=== PATIENT | male | born 1930 | race Caucasian/White ===

== ENCOUNTER 2016-05-30 15:02 | Inpatient (IN) | payer MEDICARE, OTHER ==
[2016-05-30 15:36] LABS: ABSOLUTE BASOPHILS # (AUTO) 0.1 10^3/uL (0.0-0.2); ABSOLUTE EOSINOPHILS # (AUTO) 0.1 10^3/uL (0.0-0.6); ABSOLUTE LYMPHOCYTES (AUTO) 0.8 10^3/uL (0.5-4.7); ABSOLUTE MONOCYTES (AUTO) 1.2 10^3/uL (0.1-1.4); ABSOLUTE NEUT (AUTO) 8.9 10^3/uL (1.7-8.2); BASOPHILS % (AUTO) 0.5 % (0-2); EOSINOPHILS % (AUTO) 1.2 % (0-6); HEMATOCRIT 34.4 % (37.9-51.0); HEMOGLOBIN 11.5 g/dL (13.5-17.0); HGB HCT DIFFERENCE 0.1; LYMPHOCYTES % (AUTO) 7.3 % (13-45); MEAN CORPUSCULAR HEMOGLOBIN 31.7 pg (27.0-33.4); MEAN CORPUSCULAR HGB CONC 33.4 g/dL (32.0-36.0); MEAN CORPUSCULAR VOLUME 95 fl (80-97); MONOCYTES % (AUTO) 10.9 % (3-13); RED BLOOD COUNT 3.63 10^6/uL (4.35-5.55); RED CELL DISTRIBUTION WIDTH 14.7 % (11.5-14.0); SEGMENTED NEUTROPHILS % (AUTO) 80.1 % (42-78); WHITE BLOOD COUNT 11.1 10^3/uL (4.0-10.5)
[2016-05-30 15:42] LABS: PROTHROMBIN TIME 14.2 SEC (11.4-15.4)
[2016-05-30 15:58] LABS: ALANINE AMINOTRANSFERASE 58 U/L (21-72); ALBUMIN 3.9 g/dL (3.5-5.0); ALKALINE PHOSPHATASE 78 U/L (38-126); ANION GAP 12 (5-19); ASPARTATE AMINO TRANSFERASE 44 U/L (17-59); BILIRUBIN,TOTAL 1.1 mg/dL (0.2-1.3); BLOOD UREA NITROGEN 26 mg/dL (7-20); CALCIUM 8.8 mg/dL (8.4-10.2); CARBON DIOXIDE 22 mmol/L (22-30); CHLORIDE 105 mmol/L (98-107); CREATINE KINASE 98 U/L (55-170); CREATININE RESULT 1.06 mg/dL (0.52-1.25); GLUCOSE 110 mg/dL (75-110); LIPASE 113.2 U/L (23-300); MAGNESIUM 1.9 mg/dL (1.6-2.3); POTASSIUM 4.6 mmol/L (3.6-5.0); TOTAL PROTEIN 7.2 g/dL (6.3-8.2)
--- NOTE | 2016-05-30 16:01 | ER Document Report ---
ED General - General Chief Complaint: Syncope Stated Complaint: POSSIBLE SYNCOPE TRAVEL OUTSIDE OF THE [place] IN LAST 30 DAYS: No - HPI Patient complains to provider of: syncope Notes: Patient coming in from home after syncopal episode. According to EMS they were called to the patient's house twice a day for fall. Patient recently discharged from rehabilitation facility has been home for 2 days. Patient did recently established stroke and was evaluated here in the hospital. Patient otherwise states no head pain chest pain abdominal pain shortness of breath any other symptoms prior to during or after this episode. According EMS the patient 's home health nurse did witness the episode patient "locked up" and was later on the floor and was out for approximately 2 minutes. Never lost pulses. Patient did have bowel incontinence during this time. 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 GI Medical History: Reports: Hx Irritable Bowel Past Surgical History: Reports: Hx Herniorrhaphy, Hx Inguinal Hernia - Immunizations Immunizations up to date: Yes Hx Diphtheria, Pertussis, Tetanus Vaccination: Yes Review of Systems - Review of Systems Constitutional: No symptoms reported EENT: No symptoms reported Cardiovascular: Syncope Respiratory: No symptoms reported Gastrointestinal: No symptoms reported Genitourinary: No symptoms reported Male Genitourinary: No symptoms reported Musculoskeletal: No symptoms reported Skin: No symptoms reported Hematologic/Lymphatic: No symptoms reported Neurological/Psychological: No symptoms reported -: Yes All other systems reviewed and negative Physical Exam - Vital signs Vitals: Resp Pulse Ox 22 H 83 L 05/30/16 15:21 05/30/16 15:21 Interpretation: Normal - General General appearance: Appears well, Alert - HEENT Head: Normocephalic, Atraumatic Eyes: Normal Pupils: PERRL - Respiratory Respiratory status: No respiratory distress Chest status: Nontender Breath sounds: Normal Chest palpation: Normal - Cardiovascular Rhythm: Regular Heart sounds: Normal auscultation Murmur: No - Abdominal Inspection: Normal Distension: No distension Bowel sounds: Normal Tenderness: Nontender Organomegaly: No organomegaly - Back Back: Normal, Nontender - Extremities General upper extremity: Nontender, Normal color, Normal ROM, Normal temperature General lower extremity: Nontender, Normal color, Normal ROM, Normal temperature , Normal weight bearing. No: Rufus's sign Notes: Patient with contracture of the left upper extremity and a splint on the left lower extremity. Patient has a history of stroke and weakness from the strokes. Decreased movement due to stroke normal per patient - Neurological Neuro grossly intact: Yes Cognition: Normal Orientation: AAOx4 Jessica Coma Scale Eye Opening: Spontaneous York Coma Scale Verbal: Oriented York Coma Scale Motor: Obeys Commands York Coma Scale Total: 15 Speech: Normal Motor strength normal: LUE, RUE, LLE, RLE Sensory: Normal - Psychological Associated symptoms: Normal affect, Normal mood - Skin Skin Temperature: Warm Skin Moisture: Dry Skin Color: Normal Course - Re-evaluation Re-evalutation: 05/30/16 22:30 Patient coming in for possible syncopal episode/seizure. Lab work and workup here is otherwise negative. Concern patient will be admitted for further evaluation - Vital Signs Vital signs: Temp Pulse Resp BP Pulse Ox 97.9 F 73 23 H 126/76 H 94 05/30/16 21:45 05/30/16 21:45 05/30/16 22:00 05/30/16 21:45 05/30/16 22:00 - Laboratory Result Diagrams: 05/30/16 15:23 05/30/16 15:23 Laboratory results interpreted by me: 05/30/16 05/30/16 15:23 15:23 WBC 11.1 H RBC 3.63 L Hgb 11.5 L Hct 34.4 L RDW 14.7 H Seg Neutrophils % 80.1 H Lymphocytes % 7.3 L Absolute Neutrophils 8.9 H BUN 26 H Discharge - Discharge Clinical Impression: History of stroke Syncope Qualifiers: Syncope type: unspecified Qualified Code(s): R55 - Syncope and collapse Condition: Good Disposition: ADMITTED INPATIENT Admitting Provider: Hospitalist - [facility] Admitted: Telemetry
[2016-05-30 16:11] LABS: CREATINE KINASE MB 2.06 ng/mL (<4.55)
[2016-05-30 16:14] LABS: TROPONIN I < 0.012 ng/mL
[2016-05-30] MEDS ORDERED: NORMAL SALINE 1000 ML 500 ML IV ONE (16:47)
[2016-05-30] MEDS ORDERED: ACETAMINOPHEN 325 MG TABLET PO PRN (17:46)
[2016-05-30] MEDS ORDERED: HYDROXYZINE PAMOATE 25 MG CAPSULE PO PRN (17:46)
[2016-05-30] MEDS ORDERED: NORMAL SALINE 1000 ML 1,000 ML IV PRN (17:47)
[2016-05-30] MEDS ORDERED: ONDANSETRON 4 MG TAB.RAPDIS PO PRN (17:47)
[2016-05-30] MEDS ORDERED: PHARMACY COMMUNICATION ORDER MC NR (18:00)
[2016-05-30] MEDS ORDERED: MESALAMINE PO SCH (18:00)
--- NOTE | 2016-05-30 18:07 | PDOC H&P ---
History of Present Illness Admission Date/PCP: 05/30/2016 History of Present Illness: NAIDA OWENS JR is a 85 year old male with a history of previous CVA in 2000 who was recently discharged from a rehabilitation facility 2 days ago. According to EMS, they have been out there at least twice a day for falls. This last time patient apparently had a syncopal episode where he went stiff and had bowel incontinence. During this last episode, patient apparently was unconscious for 2 minutes but never lost pulses. He never stopped breathing. EMS reports that he was not postictal afterwards. 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 At this time, it is difficult to obtain history from patient proper and there is no family at bedside. He does report that every other time except this last time he didn't lose consciousness. He reports that he oftentimes has difficulty with his bowels secondary to having underlying colitis. He reports he didn't take any medications today. Patient describes no other symptoms at this time. Patient denies any chest pain, shortness of breath, dyspnea on exertion, lower extremity edema, nausea, vomiting, difficulty with speech, new onset weakness or numbness. He is referred to hospital service for evaluation of syncope. Current medications the bottom of this document have now been verified at the time of this documentation. We are pending medication reconciliation. Past Medical History Past Medical History: Hyperlipidemia, previous CVA, history of alcoholism, colitis Cardiac Medical History: Reports: Hyperlipidema, Hypertension Neurological Medical History: Reports: Ischemic CVA Hematology: Reports: Anemia Past Surgical History Past Surgical History: Reports: Herniorrhaphy, Tonsillectomy Social History Smoking Status: Former Smoker Last Time Smoked: 1957 Frequency of Alcohol Use: None Amount of Alcoholic Beverages Per Day: previous history of heavy alcohol use up until 2000 Hx Recreational Drug Use: No Drugs: None Hx Prescription Drug Abuse: No - Advance Directive Resuscitation Status: Full Code Surrogate healthcare decision maker:: Daughter, Jose singleton Family History Family History: CAD, Hypertension, Other - Father had CHF Parental Family History Reviewed: Yes - mother in childbirth Children Family History Reviewed: Yes Sibling(s) Family History Reviewed.: Yes Medication/Allergy Home Medications: Aspirin [Aspirin EC] 81 mg PO DAILY 11/04/13 Simvastatin 10 mg PO DAILY 11/04/13 Acidoph/L.bulg/Bif.b/S.thermop [Bacid Caplet] 1 tab PO BID #28 cap 11/11/13 Albuterol Sulfate [Proair HFA] 1 puff DAILY PRN 04/12/16 Mesalamine [Delzicol] 2 tab PO TID 04/12/16 Tramadol HCl 1 tab PO QID 04/12/16 Umeclidinium Brm/Vilanterol Tr [Anoro Ellipta 62.5-25 Mcg INH] 1 puff .ROUTE DAILY 04/12/16 Diclofenac Sodium [Voltaren] 100 gm TP QID PRN 04/13/16 Ferrous Sulfate [Iron] 325 mg PO DAILY 04/13/16 Fish Oil/Dha/Epa [Fish Oil 1,200 mg Fish Oil] 1,200 mg PO DAILY 04/13/16 Folic Acid/Multivit-Min/Lutein [Centrum Silver Chewable Tablet] 1 each PO DAILY 04/13/16 Acetaminophen [Tylenol 325 mg Tablet] 650 mg PO Q4HP PRN tablet 04/16/16 Albuterol Sulfate [Proair Hfa Inhalation Aerosol 8.5 gm Mdi] 1 puff IH Q4 PRN # 1 mdi 04/16/16 Enoxaparin Sodium [Lovenox Inj 40 mg/0.4 ml Disp.syrin] 40 mg SUBCUT QAM disp.syrin 04/16/16 Hydroxyzine Pamoate [Vistaril 25 mg Capsule] 25 mg PO HSP PRN capsule 04/16/16 Allergies/Adverse Reactions: temazepam [From Restoril] Adverse Reaction (Mild, Verified 04/15/16 15:30) Confusion Review of Systems Constitutional: ABSENT: chills, fever(s), headache(s), night sweats, weakness, weight gain, weight loss Eyes: ABSENT: visual disturbances Ears: ABSENT: hearing changes Nose, Mouth, and Throat: ABSENT: headache(s), vertigo Cardiovascular: ABSENT: chest pain, dyspnea on exertion, edema, orthropnea, palpitations Respiratory: ABSENT: cough, hemoptysis Gastrointestinal: ABSENT: abdominal pain, constipation, diarrhea, hematemesis, hematochezia, nausea, vomiting Genitourinary: ABSENT: dysuria, hematuria Musculoskeletal: ABSENT: joint swelling Integumentary: ABSENT: rash, wounds Neurological: PRESENT: as per HPI, frequent falls, syncope. ABSENT: abnormal gait, abnormal speech, confusion, dizziness, numbness, paresthesias, restless legs, vertigo, weakness Psychiatric: ABSENT: anxiety, depression, homidical ideation, suicidal ideation Endocrine: ABSENT: cold intolerance, heat intolerance, polydipsia, polyuria Hematologic/Lymphatic: ABSENT: easy bleeding, easy bruising Physical Exam Vital Signs: Temp Pulse Resp BP Pulse Ox 80 22 H 139/59 H 94 05/30/16 16:57 05/30/16 15:27 05/30/16 16:57 05/30/16 15:28 General appearance: PRESENT: no acute distress, hard of hearing, well-developed , well-nourished Head exam: PRESENT: atraumatic, normocephalic Eye exam: PRESENT: conjunctiva pink, EOMI, PERRLA. ABSENT: conjunctival injection, scleral icterus Ear exam: PRESENT: normal external ear exam Mouth exam: PRESENT: moist, tongue midline Neck exam: ABSENT: JVD, lymphadenopathy, tenderness, thyromegaly, tracheal deviation Respiratory exam: PRESENT: clear to auscultation guido, prolonged expiratory phas , symmetrical. ABSENT: crackles, rales, rhonchi, tachypnea, wheezes Cardiovascular exam: PRESENT: RRR, +S1, +S2. ABSENT: clicks, diastolic murmur, gallop, rubs, systolic murmur, tachycardia Pulses: PRESENT: normal carotid pulses, normal radial pulses Vascular exam: PRESENT: normal capillary refill GI/Abdominal exam: PRESENT: hypoactive bowel sounds, normal bowel sounds, soft. ABSENT: distended, firm, guarding, mass, Bullock's sign, organolmegaly, rebound , rigid, tenderness Rectal exam: PRESENT: deferred Extremities exam: ABSENT: clubbing, pedal edema Musculoskeletal exam: PRESENT: deformity - Left lower extremity contracture, left upper extremity contracture Neurological exam: PRESENT: alert, awake, oriented to person, oriented to place , oriented to situation, CN II-XII grossly intact, motor sensory deficit - Left hemiparesis. ABSENT: oriented to time - Not oriented to time, normal gait - Left foot drop Psychiatric exam: PRESENT: appropriate affect, normal mood. ABSENT: homicidal ideation, suicidal ideation Skin exam: PRESENT: dry, intact, skin tears - Gen. bilateral arms, warm. ABSENT : cyanosis, rash Results Laboratory Results: 05/30/16 15:23 12/21/16 15:23 05/30/16 05/30/16 15:23 15:23 WBC 11.1 H RBC 3.63 L Hgb 11.5 L Hct 34.4 L MCV 95 MCH 31.7 MCHC 33.4 RDW 14.7 H Plt Count 260 Seg Neutrophils % 80.1 H Lymphocytes % 7.3 L Monocytes % 10.9 Eosinophils % 1.2 Basophils % 0.5 Absolute Neutrophils 8.9 H Absolute Lymphocytes 0.8 Absolute Monocytes 1.2 Absolute Eosinophils 0.1 Absolute Basophils 0.1 Sodium 139.0 Potassium 4.6 Chloride 105 Carbon Dioxide 22 Anion Gap 12 BUN 26 H Creatinine 1.06 Est GFR ( Amer) > 60 Est GFR (Non-Af Amer) > 60 Glucose 110 Calcium 8.8 Magnesium 1.9 Total Bilirubin 1.1 AST 44 ALT 58 Alkaline Phosphatase 78 Total Protein 7.2 Albumin 3.9 Lipase 113.2 05/30/16 05/30/16 15:23 15:23 Creatine Kinase 98 CK-MB (CK-2) 2.06 Troponin I < 0.012 Impressions: Chest X-Ray 05/30/16 15:27 IMPRESSION: NO ACUTE RADIOGRAPHIC FINDING IN THE CHEST. Head CT 05/30/16 15:27 IMPRESSION: CHRONIC CHANGES OF ATROPHY AND MICROVASCULAR ISCHEMIA. NO ACUTE PROCESS. Assessment & Plan - Diagnosis (1) Syncope Qualifiers: Syncope type: unspecified Qualified Code(s): R55 - Syncope and collapse Is this a current diagnosis for this admission?: YesPlan: Patient with witnessed episode of syncope by his home health nurse. Patient was also noted to be stiff. Will obtain EEG, VQ scan, and continue patient on MEND examinations every 4 hours. Have concern that patient actually had a seizure. Will give Keppra if he does have a seizure. Patient's other episodes were falls at least according to patient. We will consult physical therapy and occupational therapy for evaluation area and will obtain a drug screen. And I will send alcohol level. I suspect an underlying infection possibly a UTI due to patient's leukocytosis however given that I have no UA at this time I'm reluctant to start patient on antibiotic. Anabiotic usage will worsen his diarrhea. (2) Ambulatory dysfunction Is this a current diagnosis for this admission?: YesPlan: Consult physical therapy and occupational therapy (3) Anemia Qualifiers: Anemia type: B12 deficiency Vitamin B12 deficiency anemia type: unspecified B12 deficiency Qualified Code(s): D51.9 - Vitamin B12 deficiency anemia, unspecified Is this a current diagnosis for this admission?: YesPlan: Continue vitamin B-12 (4) Benign essential hypertension Is this a current diagnosis for this admission?: YesPlan: Will resume patient's home medications once reconciled (5) Hypercholesterolemia Is this a current diagnosis for this admission?: YesPlan: Continue statin (6) Inflammatory bowel disease Is this a current diagnosis for this admission?: YesPlan: Will check stool for white cells, occult blood, and culture. Continue Bacid. Continue mesalamine (7) Mild memory disturbance Is this a current diagnosis for this admission?: Yes (8) CVA (cerebral vascular accident) Qualifiers: CVA mechanism: unspecified Qualified Code(s): I63.9 - Cerebral infarction, unspecified Is this a current diagnosis for this admission?: NoPlan: Patient has previous CVA with residual left-sided hemiparesis. Concern for possible seizure in light of this history. Will obtain EEG in place on precautions. Continue aspirin. - Time Time Spent: 50 to 70 Minutes Medications reviewed and adjusted accordingly: Yes Anticipated discharge: Home with Homehealth Within: within 72 hours - Inpatient Certification Based on my medical assessment, after consideration of the patient's comorbidities, presenting symptoms, or acuity I expect that the services needed warrant INPATIENT care.: Yes I certify that my determination is in accordance with my understanding of Medicare's requirements for reasonable and necessary INPATIENT services [42 CFR 412.3e].: Yes Medical Necessity: Significant Comorbidiites Make Outpatient Treatment Too Risky , Need For IV Fluids, Need For Continuous Telemetry Monitoring, Need for Neurological Checks Post Hospital Care: D/C Pan Devulcanizer Documentation
[2016-05-30 18:28] LABS: APPEARANCE,URINE SLIGHTLY-CLOUDY; BILIRUBIN,URINE NEGATIVE (NEGATIVE); GLUCOSE, URINE NEGATIVE (NEGATIVE); KETONES,URINE TRACE mg/dL (NEGATIVE); LEUKOCYTE ESTERASE,URINE NEGATIVE (NEGATIVE); NITRITE,URINE NEGATIVE (NEGATIVE); PROTEIN,URINE 30 mg/dL (NEGATIVE); URINE SPECIFIC GRAVITY 1.021
[2016-05-30 18:42] LABS: URINE BARBITURATES SCREEN NEGATIVE; URINE METHADONE SCREEN NEGATIVE; URINE PHENCYCLIDINE SCREEN NEGATIVE
--- NOTE | 2016-05-30 19:06 | EKG REPORT ---
SEVERITY:- BORDERLINE ECG - SINUS RHYTHM WITH FIRST DEGREE AVB. DIFFUSE NONSPECIFIC ST-T CHANGES. : Confirmed by: Brett Hardin MD 30-May-2016 19:05:50
[2016-05-30] MEDS ORDERED: ENOXAPARIN SODIUM INJ 40 MG/0.4 ML DISP.SYRIN SUBCUT ONE (21:00)
[2016-05-30 22:00] LABS: CREATINE KINASE MB 1.53 ng/mL (<4.55); TROPONIN I 0.013 ng/mL
[2016-05-31] MEDS: MESALAMINE 400 MG CAPSULE.DR PO SCH ×4 (01:31→22:30)
[2016-05-31 03:26] LABS: ABSOLUTE EOSINOPHILS # (AUTO) 0.3 10^3/uL (0.0-0.6); ABSOLUTE LYMPHOCYTES (AUTO) 1.4 10^3/uL (0.5-4.7); ABSOLUTE NEUT (AUTO) 5.5 10^3/uL (1.7-8.2); BASOPHILS % (AUTO) 0.5 % (0-2); HEMATOCRIT 31.7 % (37.9-51.0); HEMOGLOBIN 10.8 g/dL (13.5-17.0); HGB HCT DIFFERENCE 0.7; LYMPHOCYTES % (AUTO) 16.9 % (13-45); MEAN CORPUSCULAR HEMOGLOBIN 32.3 pg (27.0-33.4); MEAN CORPUSCULAR HGB CONC 34.1 g/dL (32.0-36.0); MEAN CORPUSCULAR VOLUME 95 fl (80-97); MONOCYTES % (AUTO) 12.3 % (3-13); RED BLOOD COUNT 3.34 10^6/uL (4.35-5.55); RED CELL DISTRIBUTION WIDTH 14.4 % (11.5-14.0); SEGMENTED NEUTROPHILS % (AUTO) 66.3 % (42-78); WHITE BLOOD COUNT 8.3 10^3/uL (4.0-10.5)
[2016-05-31 03:42] LABS: ANION GAP 10 (5-19); BLOOD UREA NITROGEN 29 mg/dL (7-20); CARBON DIOXIDE 23 mmol/L (22-30); CHLORIDE 106 mmol/L (98-107); CREATINE KINASE 98 U/L (55-170); CREATININE RESULT 1.08 mg/dL (0.52-1.25); GLUCOSE 130 mg/dL (75-110); MAGNESIUM 2.1 mg/dL (1.6-2.3); POTASSIUM 3.9 mmol/L (3.6-5.0); SODIUM 138.5 mmol/L (137-145)
[2016-05-31 03:56] LABS: CREATINE KINASE MB 1.7 ng/mL (<4.55); TROPONIN I 0.015 ng/mL
[2016-05-31] MEDS ORDERED: NORMAL SALINE 1000 ML 1,000 ML IV PRN (07:35)
[2016-05-31] MEDS ORDERED: (PENDING PHARMACY ID) (Enoxaparin Sodium 40 MG) SUBCUT SCH (08:00)
[2016-05-31] MEDS: ENOXAPARIN SODIUM INJ 40 MG/0.4 ML DISP.SYRIN SUBCUT SCH (09:16)
[2016-05-31] MEDS ORDERED: (PENDING PHARMACY ID) (Umeclidinium Brm/Vilanterol Tr [Anoro Ellipta 62.5-25 Mcg Inh] 1 PU SCH (10:00)
[2016-05-31] MEDS ORDERED: (PENDING PHARMACY ID) (Folic Acid/Multivit-Min/Lutein [Centrum Silver Chewable Tablet] 1 E PO SCH (10:00)
[2016-05-31] MEDS ORDERED: (PENDING PHARMACY ID) (Ferrous Sulfate [Iron] 325 MG) PO SCH (10:00)
[2016-05-31] MEDS ORDERED: (PENDING PHARMACY ID) (Fish Oil/Dha/Epa [Fish Oil 1,200 Mg Fish Oil] 1,200 MG) PO SCH (10:00)
[2016-05-31] MEDS: LACTOBACILLUS ACIDOPHILUS 250 MG TAB PO SCH ×2 (10:08→17:53)
[2016-05-31] MEDS: ASPIRIN 81 MG TABLET, ENT COATED PO SCH (10:08)
[2016-05-31] MEDS: FERROUS SULFATE 325 MG TABLET PO SCH (10:08)
[2016-05-31] MEDS: OMEGA-3 ACID ETHYL ESTERS 1 GM CAPSULE PO SCH (10:08)
[2016-05-31] MEDS: MULTIVITAMIN TABLET PO SCH (10:08)
[2016-05-31 10:24] LABS: CREATINE KINASE MB 2.05 ng/mL (<4.55)
[2016-05-31 10:28] LABS: TROPONIN I < 0.012 ng/mL
[2016-05-31] MEDS ORDERED: RISPERIDONE 0.25 MG TABLET PO ONE (16:30)
--- NOTE | 2016-05-31 20:26 | EKG REPORT ---
SEVERITY:- ABNORMAL ECG - NSR WITH FIRST DEGREE AVB BORDERLINE PROLONGED QT INTERVAL : Confirmed by: Brett Hardin MD 31-May-2016 20:25:44
[2016-05-31] MEDS: SIMVASTATIN 10 MG TABLET PO SCH (22:30)
[2016-05-31] MEDS: TRAMADOL HCL 50 MG TABLET PO PRN (22:31)
[2016-05-31] MEDS: RISPERIDONE 1 MG TABLET PO SCH (22:33)
[2016-05-31] MEDS: ACETAMINOPHEN 325 MG TABLET PO PRN (23:54)
[2016-06-01] MEDS: MESALAMINE 400 MG CAPSULE.DR PO SCH ×3 (06:05→22:09)
[2016-06-01] MEDS: ENOXAPARIN SODIUM INJ 40 MG/0.4 ML DISP.SYRIN SUBCUT SCH (08:36)
[2016-06-01] MEDS: LACTOBACILLUS ACIDOPHILUS 250 MG TAB PO SCH ×2 (09:57→17:51)
[2016-06-01] MEDS: OMEGA-3 ACID ETHYL ESTERS 1 GM CAPSULE PO SCH (09:57)
[2016-06-01] MEDS: MULTIVITAMIN TABLET PO SCH (09:57)
[2016-06-01] MEDS: ASPIRIN 81 MG TABLET, ENT COATED PO SCH (09:57)
[2016-06-01] MEDS: FERROUS SULFATE 325 MG TABLET PO SCH (09:58)
--- NOTE | 2016-06-01 14:32 | PDOC PROGRESS REPORT ---
Subjective Progress Note for:: 05/31/16 Subjective:: Patient denies chest pain, shortness of breath, nausea, vomiting, abdominal pain , constipation, diarrhea, fever, chills. Patient reports he would like to go home, but understands the need for continued evaluation. Discussed with patient again that he is not to be out of bed and has been deemed by physical therapy to be not safe for out of bed. Given this information I'm unable to send him home. Physical Exam Vital Signs: Temp Pulse Resp BP Pulse Ox 98.1 F 83 18 137/59 H 94 05/31/16 03:32 05/31/16 03:32 05/31/16 03:32 05/31/16 03:32 05/31/16 03:32 Intake & Output 05/30/16 05/31/16 06/01/16 06:59 06:59 06:59 Intake Total 250 Balance 250 Weight 75.4 kg Exam: General: Awake alert and oriented x2, no acute respiratory distress HEENT: AT/NC, PERRL, EOMI, oropharynx is moist, pink, no scleral icterus, no conjunctival injection Neck: No JVD, trachea midline Chest: Clear to auscultation bilaterally, no wheezes rhonchi or rales, prolonged expiratory phase CV: Regular rate and rhythm, normal S1 and S2, no murmur, rub, or gallop Abdomen: Soft, nontender to palpation, nondistended, active bowel sounds; no rebound, rigidity, or guarding Extremities: No cyanosis, clubbing or edema Neuro: Cranial nerves II through XII are grossly intact without focal deficits; awake alert and oriented x2 Psych: Normal mood and affect Results Laboratory Results: 05/31/16 03:15 05/31/16 03:15 05/30/16 05/30/16 05/30/16 18:10 19:00 19:00 WBC RBC Hgb Hct MCV MCH MCHC RDW Plt Count Seg Neutrophils % Lymphocytes % Monocytes % Eosinophils % Basophils % Absolute Neutrophils Absolute Lymphocytes Absolute Monocytes Absolute Eosinophils Absolute Basophils Sodium Potassium Chloride Carbon Dioxide Anion Gap BUN Creatinine Est GFR ( Amer) Est GFR (Non-Af Amer) Glucose Calcium Magnesium Ammonia < 8.7 L TSH 1.76 Urine Color YELLOW Urine Appearance SLIGHTLY-CLOUDY Urine pH 5.0 Ur Specific Sandy 1.021 Urine Protein 30 H Urine Glucose (UA) NEGATIVE Urine Ketones TRACE H Urine Blood NEGATIVE Urine Nitrite NEGATIVE Ur Leukocyte Esterase NEGATIVE Urine WBC (Auto) 1 Urine RBC (Auto) 1 05/31/16 05/31/16 03:15 03:15 WBC 8.3 RBC 3.34 L Hgb 10.8 L Hct 31.7 L MCV 95 MCH 32.3 MCHC 34.1 RDW 14.4 H Plt Count 209 Seg Neutrophils % 66.3 Lymphocytes % 16.9 Monocytes % 12.3 Eosinophils % 4.0 Basophils % 0.5 Absolute Neutrophils 5.5 Absolute Lymphocytes 1.4 Absolute Monocytes 1.0 Absolute Eosinophils 0.3 Absolute Basophils 0.0 Sodium 138.5 Potassium 3.9 Chloride 106 Carbon Dioxide 23 Anion Gap 10 BUN 29 H Creatinine 1.08 Est GFR ( Amer) > 60 Est GFR (Non-Af Amer) > 60 Glucose 130 H Calcium 9.0 Magnesium 2.1 Ammonia TSH Urine Color Urine Appearance Urine pH Ur Specific Sandy Urine Protein Urine Glucose (UA) Urine Ketones Urine Blood Urine Nitrite Ur Leukocyte Esterase Urine WBC (Auto) Urine RBC (Auto) 05/30/16 05/30/16 05/31/16 21:05 21:05 03:15 Creatine Kinase 85 98 CK-MB (CK-2) 1.53 Troponin I 0.013 05/31/16 03:15 Creatine Kinase CK-MB (CK-2) 1.70 Troponin I 0.015 Impressions: Lung Scan-VQ NM 05/30/16 00:00 IMPRESSION: No ventilation-perfusion mismatches. Chest X-Ray 05/30/16 15:27 IMPRESSION: NO ACUTE RADIOGRAPHIC FINDING IN THE CHEST. Head CT 05/30/16 15:27 IMPRESSION: CHRONIC CHANGES OF ATROPHY AND MICROVASCULAR ISCHEMIA. NO ACUTE PROCESS. Assessment & Plan - Diagnosis (1) New onset seizure Is this a current diagnosis for this admission?: YesPlan: Patient has had EEG performed. From preliminary report from neurologist, suspicious activity. Will initiate patient on Keppra 1000 mg by mouth twice a day. Suspect that patient's last syncopal episode was likely a seizure due to previous CVA. (2) Syncope Qualifiers: Syncope type: unspecified Qualified Code(s): R55 - Syncope and collapse Is this a current diagnosis for this admission?: YesPlan: Patient with witnessed episode of syncope by his home health nurse. Patient was also noted to be stiff. Currently suspicious EEG. Negative VQ scan. Stop mend examinations. (3) Ambulatory dysfunction Is this a current diagnosis for this admission?: YesPlan: Consult physical therapy and occupational therapy. Patient will need permanent placement or additional rehabilitation (4) Anemia Qualifiers: Anemia type: B12 deficiency Vitamin B12 deficiency anemia type: unspecified B12 deficiency Qualified Code(s): D51.9 - Vitamin B12 deficiency anemia, unspecified Is this a current diagnosis for this admission?: Yes (5) Benign essential hypertension Is this a current diagnosis for this admission?: Yes (6) Hypercholesterolemia Is this a current diagnosis for this admission?: Yes (7) Inflammatory bowel disease Is this a current diagnosis for this admission?: YesPlan: Continue Bacid. Continue mesalamine (8) Mild memory disturbance Is this a current diagnosis for this admission?: Yes (9) CVA (cerebral vascular accident) Qualifiers: CVA mechanism: unspecified Qualified Code(s): I63.9 - Cerebral infarction, unspecified Is this a current diagnosis for this admission?: No - Time Time Spent with patient: 25-34 minutes Medications reviewed and adjusted accordingly: Yes
[2016-06-01] MEDS ORDERED: LEVETIRACETAM 500 MG TABLET PO ONE (14:45)
[2016-06-01] MEDS ORDERED: RISPERIDONE 0.25 MG TABLET PO SCH (16:00)
--- NOTE | 2016-06-01 17:09 | PDOC PROGRESS REPORT ---
Subjective Progress Note for:: 06/01/16 Subjective:: She is not safe for out of bed with physical therapy Patient denies chest pain, shortness of breath, abdominal pain, nausea, vomiting , fevers, chills, diarrhea, constipation, headache, new onset weakness. Physical Exam Vital Signs: Temp Pulse Resp BP Pulse Ox 99.1 F 87 19 149/67 H 95 06/01/16 15:42 06/01/16 15:42 06/01/16 15:42 06/01/16 15:42 06/01/16 15:42 Intake & Output 05/31/16 06/01/16 06/02/16 06:59 06:59 06:59 Intake Total 831 1408 473 Balance 831 1408 473 Weight 75.4 kg 78.3 kg Exam: General: Awake alert and oriented x3, no acute respiratory distress HEENT: AT/NC, PERRL, EOMI, oropharynx is moist, pink, no scleral icterus, no conjunctival injection Neck: No JVD, trachea midline Chest: Clear to auscultation bilaterally, no wheezes rhonchi or rales, prolonged expiratory phase CV: Regular rate and rhythm, normal S1 and S2, no murmur, rub, or gallop Abdomen: Soft, nontender to palpation, nondistended, active bowel sounds; no rebound, rigidity, or guarding Extremities: No cyanosis, clubbing or edema Neuro: Cranial nerves II through XII are grossly intact without focal deficits; awake alert and oriented x3 Psych: Normal mood and affect Results Laboratory Results: 05/31/16 03:15 05/31/16 03:15 05/30/16 18:10 Clean Catch Midstream Urine Culture - Final NO GROWTH 2 DAYS 05/30/16 05/30/16 05/31/16 21:05 21:05 03:15 Creatine Kinase 85 98 CK-MB (CK-2) 1.53 Troponin I 0.013 05/31/16 05/31/16 05/31/16 03:15 09:20 09:20 Creatine Kinase 113 CK-MB (CK-2) 1.70 2.05 Troponin I 0.015 < 0.012 Impressions: Lung Scan-VQ NM 05/30/16 00:00 IMPRESSION: No ventilation-perfusion mismatches. Head CT 05/30/16 15:27 IMPRESSION: CHRONIC CHANGES OF ATROPHY AND MICROVASCULAR ISCHEMIA. NO ACUTE PROCESS. Chest X-Ray 06/01/16 00:00 IMPRESSION: Mild bibasilar airspace disease Assessment & Plan - Diagnosis (1) New onset seizure Is this a current diagnosis for this admission?: YesPlan: Patient has had EEG performed. From preliminary report from neurologist, suspicious activity. Will initiate patient on Keppra 1000 mg by mouth twice a day. Suspect that patient's last syncopal episode was likely a seizure due to previous CVA. (2) Syncope Qualifiers: Syncope type: unspecified Qualified Code(s): R55 - Syncope and collapse Is this a current diagnosis for this admission?: YesPlan: Patient with witnessed episode of syncope by his home health nurse. Patient was also noted to be stiff. Currently suspicious EEG. Negative VQ scan. Will also plan for 30 day event monitor as an outpatient. 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 (3) Ambulatory dysfunction Is this a current diagnosis for this admission?: YesPlan: Consult physical therapy and occupational therapy. Patient will need permanent placement or additional rehabilitation (4) Anemia Qualifiers: Anemia type: B12 deficiency Vitamin B12 deficiency anemia type: unspecified B12 deficiency Qualified Code(s): D51.9 - Vitamin B12 deficiency anemia, unspecified Is this a current diagnosis for this admission?: YesPlan: Continue vitamin B-12 (5) Benign essential hypertension Is this a current diagnosis for this admission?: Yes (6) Hypercholesterolemia Is this a current diagnosis for this admission?: Yes (7) Inflammatory bowel disease Is this a current diagnosis for this admission?: Yes (8) Mild memory disturbance Is this a current diagnosis for this admission?: YesPlan: Patient does have a small amount of sundowning that was noted yesterday. Will begin giving patient Risperdal 0.25 mg at 4 PM and 0.5 mg 8 PM (9) CVA (cerebral vascular accident) Qualifiers: CVA mechanism: unspecified Qualified Code(s): I63.9 - Cerebral infarction, unspecified Is this a current diagnosis for this admission?: No - Time Time Spent with patient: 25-34 minutes Medications reviewed and adjusted accordingly: Yes Anticipated discharge: SNF, Acute Rehab
[2016-06-01] MEDS: RISPERIDONE 1 MG TABLET PO SCH (20:08)
[2016-06-01] MEDS: TRAMADOL HCL 50 MG TABLET PO PRN (20:09)
[2016-06-01] MEDS: SIMVASTATIN 10 MG TABLET PO SCH (22:09)
[2016-06-02] MEDS: LEVETIRACETAM 500 MG TABLET PO SCH ×2 (05:42→18:21)
[2016-06-02] MEDS: TRAMADOL HCL 50 MG TABLET PO PRN ×2 (05:43→22:07)
[2016-06-02] MEDS: MESALAMINE 400 MG CAPSULE.DR PO SCH ×3 (05:43→22:08)
[2016-06-02 08:18] LABS: ABSOLUTE BASOPHILS # (AUTO) 0.1 10^3/uL (0.0-0.2); ABSOLUTE EOSINOPHILS # (AUTO) 0.2 10^3/uL (0.0-0.6); ABSOLUTE LYMPHOCYTES (AUTO) 1.2 10^3/uL (0.5-4.7); ABSOLUTE MONOCYTES (AUTO) 1.6 10^3/uL (0.1-1.4); ABSOLUTE NEUT (AUTO) 11.2 10^3/uL (1.7-8.2); BASOPHILS % (AUTO) 0.5 % (0-2); EOSINOPHILS % (AUTO) 1.2 % (0-6); HEMATOCRIT 27.9 % (37.9-51.0); HEMOGLOBIN 9.6 g/dL (13.5-17.0); HGB HCT DIFFERENCE 0.9; LYMPHOCYTES % (AUTO) 8.6 % (13-45); MEAN CORPUSCULAR HEMOGLOBIN 32.8 pg (27.0-33.4); MEAN CORPUSCULAR HGB CONC 34.4 g/dL (32.0-36.0); MEAN CORPUSCULAR VOLUME 95 fl (80-97); MONOCYTES % (AUTO) 11.2 % (3-13); RED BLOOD COUNT 2.94 10^6/uL (4.35-5.55); RED CELL DISTRIBUTION WIDTH 14.7 % (11.5-14.0); SEGMENTED NEUTROPHILS % (AUTO) 78.5 % (42-78); WHITE BLOOD COUNT 14.2 10^3/uL (4.0-10.5)
[2016-06-02 08:32] LABS: ANION GAP 10 (5-19); BLOOD UREA NITROGEN 31 mg/dL (7-20); CALCIUM 8.1 mg/dL (8.4-10.2); CARBON DIOXIDE 20 mmol/L (22-30); CHLORIDE 104 mmol/L (98-107); CREATININE RESULT 1.24 mg/dL (0.52-1.25); GLUCOSE 111 mg/dL (75-110); POTASSIUM 3.8 mmol/L (3.6-5.0); SODIUM 134.3 mmol/L (137-145)
[2016-06-02] MEDS: ENOXAPARIN SODIUM INJ 40 MG/0.4 ML DISP.SYRIN SUBCUT SCH (08:38)
[2016-06-02] MEDS: OMEGA-3 ACID ETHYL ESTERS 1 GM CAPSULE PO SCH (09:54)
[2016-06-02] MEDS: MULTIVITAMIN TABLET PO SCH (09:54)
[2016-06-02] MEDS: ASPIRIN 81 MG TABLET, ENT COATED PO SCH (09:54)
[2016-06-02] MEDS: LACTOBACILLUS ACIDOPHILUS 250 MG TAB PO SCH ×2 (09:54→18:21)
[2016-06-02] MEDS: FERROUS SULFATE 325 MG TABLET PO SCH (09:54)
--- NOTE | 2016-06-02 12:43 | PDOC PROGRESS REPORT ---
Subjective Progress Note for:: 06/02/16 Subjective:: Patient noted to have a MAXIMUM TEMPERATURE overnight of 102.1. Patient denies any symptoms at this time; however, is mostly just annoyed that I woke him up. Patient denies chest pain, shortness of breath, abdominal pain, nausea, vomiting , constipation, headache, new onset weakness. Physical Exam Vital Signs: Temp Pulse Resp BP Pulse Ox 99.3 F 79 17 118/55 L 94 06/02/16 04:20 06/02/16 07:00 06/02/16 04:20 06/02/16 04:22 06/02/16 04:22 Intake & Output 06/01/16 06/02/16 06/03/16 06:59 06:59 06:59 Intake Total 1408 1080 Balance 1408 1080 Weight 78.3 kg 78.2 kg Exam: General: Awake alert and oriented x2 no acute respiratory distress HEENT: AT/NC, PERRL, EOMI, oropharynx is moist, pink, no scleral icterus, no conjunctival injection Neck: No JVD, trachea midline Chest: Slight bibasilar crackles prolonged expiratory phase CV: Regular rate and rhythm, normal S1 and S2, no murmur, rub, or gallop Abdomen: Soft, nontender to palpation, nondistended, active bowel sounds; no rebound, rigidity, or guarding Extremities: No cyanosis, clubbing or edema Neuro: Cranial nerves II through XII are grossly intact without focal deficits; left-sided hand contracture, left leg weakness awake alert and oriented x2 Psych: Agitated Results Laboratory Results: 05/31/16 03:15 05/31/16 03:15 05/30/16 18:10 Clean Catch Midstream Urine Culture - Final NO GROWTH 2 DAYS 05/30/16 05/30/16 05/31/16 21:05 21:05 03:15 Creatine Kinase 85 98 CK-MB (CK-2) 1.53 Troponin I 0.013 05/31/16 05/31/16 05/31/16 03:15 09:20 09:20 Creatine Kinase 113 CK-MB (CK-2) 1.70 2.05 Troponin I 0.015 < 0.012 Impressions: Lung Scan-VQ NM 05/30/16 00:00 IMPRESSION: No ventilation-perfusion mismatches. Head CT 05/30/16 15:27 IMPRESSION: CHRONIC CHANGES OF ATROPHY AND MICROVASCULAR ISCHEMIA. NO ACUTE PROCESS. Chest X-Ray 06/01/16 00:00 IMPRESSION: Mild bibasilar airspace disease Assessment & Plan - Diagnosis (1) Sepsis Is this a current diagnosis for this admission?: YesPlan: Treat patient for underlying pneumonia (2) Healthcare-associated pneumonia Is this a current diagnosis for this admission?: YesPlan: We'll initiate patient on Zosyn and hold on vancomycin at this time. Given patient's advanced age would like to attempt to preserve his renal function. He has no history of MRSA. Suspect patient may have actually aspirated when he had his seizure. Place on scheduled nebulized treatments and aggressive pulmonary toileting. Obtain sputum culture. (3) New onset seizure Is this a current diagnosis for this admission?: YesPlan: Patient has had EEG performed. From preliminary report from neurologist, suspicious activity. Will initiate patient on Keppra 1000 mg by mouth twice a day. Suspect that patient's last syncopal episode was likely a seizure due to previous CVA. (4) Syncope Qualifiers: Syncope type: unspecified Qualified Code(s): R55 - Syncope and collapse Is this a current diagnosis for this admission?: YesPlan: Patient with witnessed episode of syncope by his home health nurse. Patient was also noted to be stiff. Currently suspicious EEG. Negative VQ scan. Will also plan for 30 day event monitor as an outpatient. 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 (5) Ambulatory dysfunction Is this a current diagnosis for this admission?: YesPlan: Consult physical therapy and occupational therapy. Patient will need permanent placement or additional rehabilitation (6) Anemia Qualifiers: Anemia type: B12 deficiency Vitamin B12 deficiency anemia type: unspecified B12 deficiency Qualified Code(s): D51.9 - Vitamin B12 deficiency anemia, unspecified Is this a current diagnosis for this admission?: Yes (7) Benign essential hypertension Is this a current diagnosis for this admission?: Yes (8) Hypercholesterolemia Is this a current diagnosis for this admission?: Yes (9) Inflammatory bowel disease Is this a current diagnosis for this admission?: Yes (10) Mild memory disturbance Is this a current diagnosis for this admission?: Yes (11) CVA (cerebral vascular accident) Qualifiers: CVA mechanism: unspecified Qualified Code(s): I63.9 - Cerebral infarction, unspecified Is this a current diagnosis for this admission?: No
[2016-06-02] MEDS: PIPERACILLIN SODIUM/TAZOBACTAM 3.375 GM in NORMAL SALINE 100 ML IV SCH ×2 (13:27→18:14)
[2016-06-02] MEDS: IPRATROPIUM/ALBUTEROL 0.5-2.5 MG/3 ML AMPUL NEB SCH ×2 (14:51→19:48)
[2016-06-02] MEDS: NORMAL SALINE 1000 ML 1,000 ML IV PRN (15:31)
[2016-06-02 18:16] LABS: APPEARANCE,URINE SLIGHTLY-CLOUDY; BILIRUBIN,URINE NEGATIVE (NEGATIVE); GLUCOSE, URINE NEGATIVE (NEGATIVE); KETONES,URINE NEGATIVE (NEGATIVE); LEUKOCYTE ESTERASE,URINE TRACE (NEGATIVE); NITRITE,URINE NEGATIVE (NEGATIVE); PROTEIN,URINE 100 mg/dL (NEGATIVE); URINE SPECIFIC GRAVITY 1.025; UROBILINOGEN,URINE NEGATIVE mg/dL (<2.0)
[2016-06-02] MEDS: RISPERIDONE 1 MG TABLET PO SCH (22:07)
[2016-06-02] MEDS: SIMVASTATIN 10 MG TABLET PO SCH (22:07)
[2016-06-03] MEDS: PIPERACILLIN SODIUM/TAZOBACTAM 3.375 GM in NORMAL SALINE 100 ML IV SCH ×4 (00:52→18:00)
[2016-06-03] MEDS: LEVETIRACETAM 500 MG TABLET PO SCH ×2 (06:05→17:47)
[2016-06-03] MEDS: MESALAMINE 400 MG CAPSULE.DR PO SCH ×3 (06:05→21:45)
[2016-06-03 08:13] LABS: ABSOLUTE EOSINOPHILS # (AUTO) 0.6 10^3/uL (0.0-0.6); ABSOLUTE LYMPHOCYTES (AUTO) 1.3 10^3/uL (0.5-4.7); ABSOLUTE NEUT (AUTO) 7.4 10^3/uL (1.7-8.2); BASOPHILS % (AUTO) 0.5 % (0-2); EOSINOPHILS % (AUTO) 6.2 % (0-6); HEMATOCRIT 27.1 % (37.9-51.0); HEMOGLOBIN 9.3 g/dL (13.5-17.0); HGB HCT DIFFERENCE 0.8; LYMPHOCYTES % (AUTO) 12.4 % (13-45); MEAN CORPUSCULAR HEMOGLOBIN 32.7 pg (27.0-33.4); MEAN CORPUSCULAR HGB CONC 34.1 g/dL (32.0-36.0); MEAN CORPUSCULAR VOLUME 96 fl (80-97); MONOCYTES % (AUTO) 9.6 % (3-13); RED BLOOD COUNT 2.83 10^6/uL (4.35-5.55); RED CELL DISTRIBUTION WIDTH 14.5 % (11.5-14.0); SEGMENTED NEUTROPHILS % (AUTO) 71.3 % (42-78); WHITE BLOOD COUNT 10.3 10^3/uL (4.0-10.5)
[2016-06-03] MEDS: IPRATROPIUM/ALBUTEROL 0.5-2.5 MG/3 ML AMPUL NEB SCH ×3 (08:18→20:04)
[2016-06-03 08:28] LABS: ANION GAP 11 (5-19); BLOOD UREA NITROGEN 33 mg/dL (7-20); CALCIUM 8.6 mg/dL (8.4-10.2); CARBON DIOXIDE 22 mmol/L (22-30); CHLORIDE 105 mmol/L (98-107); CREATININE RESULT 1.25 mg/dL (0.52-1.25); GLUCOSE 95 mg/dL (75-110); POTASSIUM 3.7 mmol/L (3.6-5.0); SODIUM 137.6 mmol/L (137-145)
[2016-06-03] MEDS: TRAMADOL HCL 50 MG TABLET PO PRN ×2 (08:51→17:53)
[2016-06-03] MEDS: ASPIRIN 81 MG TABLET, ENT COATED PO SCH (09:00)
[2016-06-03] MEDS: OMEGA-3 ACID ETHYL ESTERS 1 GM CAPSULE PO SCH (09:01)
[2016-06-03] MEDS: MULTIVITAMIN TABLET PO SCH (09:01)
[2016-06-03] MEDS: LACTOBACILLUS ACIDOPHILUS 250 MG TAB PO SCH ×2 (09:01→17:47)
[2016-06-03] MEDS: FERROUS SULFATE 325 MG TABLET PO SCH (09:01)
[2016-06-03] MEDS: ENOXAPARIN SODIUM INJ 40 MG/0.4 ML DISP.SYRIN SUBCUT SCH (09:17)
--- NOTE | 2016-06-03 12:16 | PDOC PROGRESS REPORT ---
Subjective Progress Note for:: 06/03/16 Subjective:: Patient reports he's feeling improved over yesterday. Patient was able to get up to the chair today to person assist and was able to stay there for approximately 20 minutes. Patient denies chest pain, shortness of breath, abdominal pain, nausea, vomiting, fevers, chills, diarrhea, constipation, headache, new onset weakness. Patient reports no new complaints but feels he should stay in the hospital for about a month. Physical Exam Vital Signs: Temp Pulse Resp BP Pulse Ox 97.6 F 66 18 113/50 L 100 06/03/16 03:39 06/03/16 03:39 06/03/16 03:39 06/03/16 03:39 06/03/16 03:39 Intake & Output 06/02/16 06/03/16 06/04/16 06:59 06:59 06:59 Intake Total 1080 1630 Output Total 0 Balance 1080 1630 Weight 78.2 kg 75.4 kg Exam: General: Awake alert and oriented x3 no acute respiratory distress HEENT: AT/NC, PERRL, EOMI, oropharynx is moist, pink, no scleral icterus, no conjunctival injection Neck: No JVD, trachea midline Chest: Clear to auscultation bilaterally, prolonged expiratory phase CV: Regular rate and rhythm, normal S1 and S2, no murmur, rub, or gallop Abdomen: Soft, nontender to palpation, nondistended, active bowel sounds; no rebound, rigidity, or guarding Extremities: No cyanosis, clubbing or edema Neuro: Cranial nerves II through XII are grossly intact without focal deficits; left-sided hand contracture, left leg weakness, awake alert and oriented x3 Psych: Normal mood and affect Results Laboratory Results: 06/02/16 08:06 06/02/16 08:06 06/02/16 06/02/16 06/02/16 08:06 08:06 18:00 WBC 14.2 H RBC 2.94 L Hgb 9.6 L Hct 27.9 L MCV 95 MCH 32.8 MCHC 34.4 RDW 14.7 H Plt Count 170 Seg Neutrophils % 78.5 H Lymphocytes % 8.6 L Monocytes % 11.2 Eosinophils % 1.2 Basophils % 0.5 Absolute Neutrophils 11.2 H Absolute Lymphocytes 1.2 Absolute Monocytes 1.6 H Absolute Eosinophils 0.2 Absolute Basophils 0.1 Sodium 134.3 L Potassium 3.8 Chloride 104 Carbon Dioxide 20 L Anion Gap 10 BUN 31 H Creatinine 1.24 Est GFR ( Amer) > 60 Est GFR (Non-Af Amer) 56 L Glucose 111 H Calcium 8.1 L Urine Color YELLOW Urine Appearance SLIGHTLY-CLOUDY Urine pH 5.0 Ur Specific [place] 1.025 Urine Protein 100 H Urine Glucose (UA) NEGATIVE Urine Ketones NEGATIVE Urine Blood NEGATIVE Urine Nitrite NEGATIVE Ur Leukocyte Esterase TRACE H Urine WBC (Auto) 7 Urine RBC (Auto) 2 05/30/16 05/30/16 05/31/16 21:05 21:05 03:15 Creatine Kinase 85 98 CK-MB (CK-2) 1.53 Troponin I 0.013 05/31/16 05/31/16 05/31/16 03:15 09:20 09:20 Creatine Kinase 113 CK-MB (CK-2) 1.70 2.05 Troponin I 0.015 < 0.012 Impressions: Lung Scan-VQ NM 05/30/16 00:00 IMPRESSION: No ventilation-perfusion mismatches. Head CT 05/30/16 15:27 IMPRESSION: CHRONIC CHANGES OF ATROPHY AND MICROVASCULAR ISCHEMIA. NO ACUTE PROCESS. Chest X-Ray 06/02/16 00:00 IMPRESSION: Stable. Assessment & Plan - Diagnosis (1) Sepsis Qualifiers: Sepsis type: sepsis due to unspecified organism Qualified Code(s): A41.9 - Sepsis, unspecified organism Is this a current diagnosis for this admission?: YesPlan: Treat patient for underlying pneumonia (2) Healthcare-associated pneumonia Is this a current diagnosis for this admission?: YesPlan: We'll initiate patient on Zosyn and hold on vancomycin at this time. Given patient's advanced age would like to attempt to preserve his renal function. He has no history of MRSA. Suspect patient may have actually aspirated when he had his seizure. Increasing the likelihood for gram-negative bacteria. Place on scheduled nebulized treatments and aggressive pulmonary toileting. Obtain sputum culture. (3) New onset seizure Is this a current diagnosis for this admission?: YesPlan: Patient on Keppra 1000mg by mouth twice a day. (4) Syncope Qualifiers: Syncope type: unspecified Qualified Code(s): R55 - Syncope and collapse Is this a current diagnosis for this admission?: YesPlan: Most likely represents seizure. Negative VQ scan. Patient will need a 30 day event monitor as an outpatient. He does have significant first-degree AV block. (5) Ambulatory dysfunction Is this a current diagnosis for this admission?: YesPlan: Continue physical therapy and occupational therapy. Patient will need permanent placement or additional rehabilitation. Patient is not safe for home. Out of bed to chair 3 times a day. (6) Anemia Qualifiers: Anemia type: B12 deficiency Vitamin B12 deficiency anemia type: unspecified B12 deficiency Qualified Code(s): D51.9 - Vitamin B12 deficiency anemia, unspecified Is this a current diagnosis for this admission?: Yes (7) Benign essential hypertension Is this a current diagnosis for this admission?: Yes (8) Hypercholesterolemia Is this a current diagnosis for this admission?: Yes (9) Inflammatory bowel disease Is this a current diagnosis for this admission?: Yes (10) Mild memory disturbance Is this a current diagnosis for this admission?: Yes (11) CVA (cerebral vascular accident) Qualifiers: CVA mechanism: unspecified Qualified Code(s): I63.9 - Cerebral infarction, unspecified Is this a current diagnosis for this admission?: No - Time Time Spent with patient: 25-34 minutes Medications reviewed and adjusted accordingly: Yes Anticipated discharge: SNF, Acute Rehab Within: when bed available
[2016-06-03] MEDS: RISPERIDONE 1 MG TABLET PO SCH (21:46)
[2016-06-03] MEDS: SIMVASTATIN 10 MG TABLET PO SCH (21:46)
[2016-06-03] MEDS: NORMAL SALINE 1000 ML 1,000 ML IV PRN (21:46)
[2016-06-04] MEDS: PIPERACILLIN SODIUM/TAZOBACTAM 3.375 GM in NORMAL SALINE 100 ML IV SCH ×5 (00:44→23:06)
[2016-06-04] MEDS: LEVETIRACETAM 500 MG TABLET PO SCH ×2 (05:56→17:52)
[2016-06-04] MEDS: MESALAMINE 400 MG CAPSULE.DR PO SCH ×3 (05:57→22:59)
[2016-06-04] MEDS: IPRATROPIUM/ALBUTEROL 0.5-2.5 MG/3 ML AMPUL NEB SCH ×3 (08:03→20:00)
[2016-06-04] MEDS: ENOXAPARIN SODIUM INJ 40 MG/0.4 ML DISP.SYRIN SUBCUT SCH (08:35)
[2016-06-04] MEDS: LACTOBACILLUS ACIDOPHILUS 250 MG TAB PO SCH ×2 (09:30→17:52)
[2016-06-04] MEDS: OMEGA-3 ACID ETHYL ESTERS 1 GM CAPSULE PO SCH (09:30)
[2016-06-04] MEDS: MULTIVITAMIN TABLET PO SCH (09:30)
[2016-06-04] MEDS: ASPIRIN 81 MG TABLET, ENT COATED PO SCH (09:30)
[2016-06-04] MEDS: FERROUS SULFATE 325 MG TABLET PO SCH (09:32)
--- NOTE | 2016-06-04 15:04 | PDOC PROGRESS REPORT ---
Subjective Progress Note for:: 06/04/16 Subjective:: Patient reports that he is feeling much better. Patient apparently had some difficulty with confusion this morning. He recognizes this. Patient denies chest pain, shortness of breath, abdominal pain, nausea, vomiting, fevers, chills, diarrhea, constipation, headache, new onset weakness. Physical Exam Vital Signs: Temp Pulse Resp BP Pulse Ox 97.8 F 64 22 H 108/60 97 06/04/16 03:44 06/04/16 07:00 06/04/16 03:44 06/04/16 03:44 06/04/16 03:44 Intake & Output 06/03/16 06/04/16 06/05/16 06:59 06:59 06:59 Intake Total 1630 2552 Output Total 0 Balance 1630 2552 Weight 75.4 kg 80 kg Exam: General: Awake alert and oriented x3 no acute respiratory distress HEENT: AT/NC, PERRL, EOMI, oropharynx is moist, pink, no scleral icterus, no conjunctival injection Neck: No JVD, trachea midline Chest: Bilateral bibasilar crackles CV: Regular rate and rhythm, normal S1 and S2, no murmur, rub, or gallop Abdomen: Soft, nontender to palpation, nondistended, active bowel sounds; no rebound, rigidity, or guarding Extremities: No cyanosis, clubbing or edema Neuro: Cranial nerves II through XII are grossly intact without focal deficits; left-sided hand contracture, left leg weakness, awake alert and oriented x3 Psych: Normal mood and affect Results Laboratory Results: 06/03/16 07:56 06/03/16 07:56 06/03/16 06/03/16 07:56 07:56 WBC 10.3 RBC 2.83 L Hgb 9.3 L Hct 27.1 L MCV 96 MCH 32.7 MCHC 34.1 RDW 14.5 H Plt Count 168 Seg Neutrophils % 71.3 Lymphocytes % 12.4 L Monocytes % 9.6 Eosinophils % 6.2 H Basophils % 0.5 Absolute Neutrophils 7.4 Absolute Lymphocytes 1.3 Absolute Monocytes 1.0 Absolute Eosinophils 0.6 Absolute Basophils 0.0 Sodium 137.6 Potassium 3.7 Chloride 105 Carbon Dioxide 22 Anion Gap 11 BUN 33 H Creatinine 1.25 Est GFR ( Amer) > 60 Est GFR (Non-Af Amer) 55 L Glucose 95 Calcium 8.6 05/30/16 05/30/16 05/31/16 21:05 21:05 03:15 Creatine Kinase 85 98 CK-MB (CK-2) 1.53 Troponin I 0.013 05/31/16 05/31/16 05/31/16 03:15 09:20 09:20 Creatine Kinase 113 CK-MB (CK-2) 1.70 2.05 Troponin I 0.015 < 0.012 Impressions: Lung Scan-VQ NM 05/30/16 00:00 IMPRESSION: No ventilation-perfusion mismatches. Head CT 05/30/16 15:27 IMPRESSION: CHRONIC CHANGES OF ATROPHY AND MICROVASCULAR ISCHEMIA. NO ACUTE PROCESS. Chest X-Ray 06/02/16 00:00 IMPRESSION: Stable. Assessment & Plan - Diagnosis (1) Sepsis Qualifiers: Sepsis type: sepsis due to unspecified organism Qualified Code(s): A41.9 - Sepsis, unspecified organism Is this a current diagnosis for this admission?: YesPlan: Treat patient for underlying pneumonia and UTI (2) UTI (urinary tract infection) Qualifiers: Urinary tract infection type: acute cystitis Hematuria presence: without hematuria Qualified Code(s): N30.00 - Acute cystitis without hematuria Is this a current diagnosis for this admission?: YesPlan: Patient currently growing 10-20,000 colony-forming units of gram-negative rods. Will speciate and treat this, as patient is 85. (3) Healthcare-associated pneumonia Is this a current diagnosis for this admission?: YesPlan: We'll initiate patient on Zosyn and hold on vancomycin at this time. Given patient's advanced age would like to attempt to preserve his renal function. He has no history of MRSA. Patient currently on Zosyn, and no further fevers. Will add vancomycin upon susceptibility testing of his gram-positive cocci. Place on scheduled nebulized treatments and aggressive pulmonary toileting. Obtain sputum culture. (4) New onset seizure Is this a current diagnosis for this admission?: YesPlan: Patient on Keppra 1000mg by mouth twice a day. Secondary to prior CVA. (5) Syncope Qualifiers: Syncope type: unspecified Qualified Code(s): R55 - Syncope and collapse Is this a current diagnosis for this admission?: YesPlan: Most likely represents seizure. Negative VQ scan. Patient will need a 30 day event monitor as an outpatient. He does have significant first-degree AV block. (6) Ambulatory dysfunction Is this a current diagnosis for this admission?: Yes (7) Anemia Qualifiers: Anemia type: B12 deficiency Vitamin B12 deficiency anemia type: unspecified B12 deficiency Qualified Code(s): D51.9 - Vitamin B12 deficiency anemia, unspecified Is this a current diagnosis for this admission?: YesPlan: Continue vitamin B-12 (8) Benign essential hypertension Is this a current diagnosis for this admission?: Yes (9) Hypercholesterolemia Is this a current diagnosis for this admission?: Yes (10) Inflammatory bowel disease Is this a current diagnosis for this admission?: Yes (11) Mild memory disturbance Is this a current diagnosis for this admission?: Yes (12) CVA (cerebral vascular accident) Qualifiers: CVA mechanism: unspecified Qualified Code(s): I63.9 - Cerebral infarction, unspecified Is this a current diagnosis for this admission?: No (13) Acute encephalopathy Is this a current diagnosis for this admission?: YesPlan: Due to underlying sepsis. Patient is improving with his dementia with the addition of Risperdal at night. - Time Time Spent with patient: 25-34 minutes Medications reviewed and adjusted accordingly: Yes Anticipated discharge: SNF, Acute Rehab
[2016-06-04] MEDS: NORMAL SALINE 1000 ML 1,000 ML IV PRN (15:20)
[2016-06-04] MEDS: RISPERIDONE 1 MG TABLET PO SCH (20:26)
[2016-06-04] MEDS: SIMVASTATIN 10 MG TABLET PO SCH (22:59)
[2016-06-05] MEDS: PIPERACILLIN SODIUM/TAZOBACTAM 3.375 GM in NORMAL SALINE 100 ML IV SCH ×3 (06:59→17:38)
[2016-06-05] MEDS: MESALAMINE 400 MG CAPSULE.DR PO SCH ×3 (06:59→21:02)
[2016-06-05] MEDS: LEVETIRACETAM 500 MG TABLET PO SCH ×2 (06:59→17:38)
[2016-06-05] MEDS: IPRATROPIUM/ALBUTEROL 0.5-2.5 MG/3 ML AMPUL NEB SCH (07:52)
[2016-06-05] MEDS: ENOXAPARIN SODIUM INJ 40 MG/0.4 ML DISP.SYRIN SUBCUT SCH (07:54)
[2016-06-05] MEDS: MULTIVITAMIN TABLET PO SCH (09:05)
[2016-06-05] MEDS: OMEGA-3 ACID ETHYL ESTERS 1 GM CAPSULE PO SCH (09:05)
[2016-06-05] MEDS: LACTOBACILLUS ACIDOPHILUS 250 MG TAB PO SCH ×2 (09:05→17:38)
[2016-06-05] MEDS: ASPIRIN 81 MG TABLET, ENT COATED PO SCH (09:05)
[2016-06-05] MEDS: FERROUS SULFATE 325 MG TABLET PO SCH (09:05)
[2016-06-05] MEDS: NORMAL SALINE 1000 ML 1,000 ML IV PRN (09:59)
--- NOTE | 2016-06-05 10:34 | EEG PRO FEE REPORT ---
EEG INTERPRETATION PATIENT NAME: NAIDA OWENS ROOM#: [id number] ORDER#: [id number] DATE OF STUDY: 05/30/2016 : 1930 REFERRING MD: SUHAIL ROWLAND M.D. DIAGNOSIS: Syncope, possible seizures. MEDICATIONS: Aspirin, Lovenox, Hydroxyzine, vitamins and supplements. REPORT This is a 19 channel EEG recording with a channel of EKG. This is done during wakefulness, photic stimulation, and early stages of sleep. There was much severe artifact throughout the tracing. The background activity is 6 to 7 cycles per second, along with high voltage, beta 18-22 cycles per second. Severe muscle movement and eye movement as patient kept talking throughout the recording seen. Photic stimulation did not alter the tracing significantly. In the early stages of sleep, more slowing is seen. IMPRESSION Although this EEG is contains severe artifact, no definite epileptiform activity noted. INTERPRETING PHYSICIAN: MARYANNE BAER M.D. /: BETY TT: 1025 ID: [id number] /: [id number] TD: [id number] JOB: [id number] cc:Emelia GARCIA M.D. >
[2016-06-05] MEDS ORDERED: ALBUTEROL SULFATE 0.083% NEB 2.5 MG/3 ML AMPUL NEB PRN (13:21)
--- NOTE | 2016-06-05 13:24 | PDOC PROGRESS REPORT ---
Subjective Progress Note for:: 06/05/16 Subjective:: Patient remains confused and disoriented. Nursing reports no other issues. Review of systems is limited by underlying encephalopathy/dementia. Physical Exam Vital Signs: Temp Pulse Resp BP Pulse Ox 98.3 F 69 22 H 136/66 H 99 06/05/16 12:32 06/05/16 12:32 06/05/16 12:32 06/05/16 12:32 06/05/16 12:32 Intake & Output 06/04/16 06/05/16 06/06/16 06:59 06:59 06:59 Intake Total 2552 1382 0 Balance 2552 1382 0 Weight 80 kg 82 kg GENERAL: No acute distress HEENT: Conjunctiva clear, nonicteric, moist mucous membranes, no JVD, midline trachea RESPIRATORY: Bilateral rhonchi CARDIAC: Regular rate and rhythm, no murmurs/gallops/rubs ABDOMEN: Soft, nondistended, nontender, positive bowel sounds, no rebound, no guarding EXTREMETIES: No edema, cyanosis, clubbing NEUROLOGIC: Alert, oriented to person only, expressive aphasia noted, CN's grossly intact, left hemiparesis SKIN: No rash, wounds PSYCH: Normal mood, normal affect Results Laboratory Results: 06/03/16 07:56 06/03/16 07:56 06/03/16 10:10 Sputum Gram Stain - Final 05/30/16 21:05 Blood Blood Culture - Final NO GROWTH IN 5 DAYS 05/30/16 19:00 Blood Blood Culture - Final NO GROWTH IN 5 DAYS 05/30/16 05/30/16 05/31/16 21:05 21:05 03:15 Creatine Kinase 85 98 CK-MB (CK-2) 1.53 Troponin I 0.013 05/31/16 05/31/16 05/31/16 03:15 09:20 09:20 Creatine Kinase 113 CK-MB (CK-2) 1.70 2.05 Troponin I 0.015 < 0.012 Impressions: Lung Scan-VQ NM 05/30/16 00:00 IMPRESSION: No ventilation-perfusion mismatches. Head CT 05/30/16 15:27 IMPRESSION: CHRONIC CHANGES OF ATROPHY AND MICROVASCULAR ISCHEMIA. NO ACUTE PROCESS. Chest X-Ray 06/02/16 00:00 IMPRESSION: Stable. Assessment & Plan - Diagnosis (1) Sepsis Qualifiers: Sepsis type: sepsis due to unspecified organism Qualified Code(s): A41.9 - Sepsis, unspecified organism Is this a current diagnosis for this admission?: YesPlan: Secondary to pneumonia and urinary tract infection. Patient is now afebrile. Continue IV Zosyn for now. (2) UTI (urinary tract infection) Qualifiers: Urinary tract infection type: acute cystitis Hematuria presence: without hematuria Qualified Code(s): N30.00 - Acute cystitis without hematuria Is this a current diagnosis for this admission?: YesPlan: Continue IV Zosyn pending further culture and sensitivity. (3) Healthcare-associated pneumonia Is this a current diagnosis for this admission?: YesPlan: Continue IV Zosyn. Convert to oral antibiotics once we have culture and sensitivity report back for urinary tract infection, perhaps we can have patient on 1 oral antibiotic for both pneumonia and UTI. (4) New onset seizure Is this a current diagnosis for this admission?: YesPlan: Continue Keppra. (5) Dementia Is this a current diagnosis for this admission?: Yes (6) History of CVA (cerebrovascular accident) Is this a current diagnosis for this admission?: YesPlan: Continue aspirin and Zocor. Patient has residual left hemiparesis and expressive aphasia. (7) Syncope Qualifiers: Syncope type: unspecified Qualified Code(s): R55 - Syncope and collapse Is this a current diagnosis for this admission?: Yes (8) Ambulatory dysfunction Is this a current diagnosis for this admission?: YesPlan: Continue physical therapy. Patient will need to go back to nursing home facility for rehabilitation and ongoing care. (9) Benign essential hypertension Is this a current diagnosis for this admission?: Yes (10) Inflammatory bowel disease Is this a current diagnosis for this admission?: YesPlan: Continue mesalamine. - Time Time Spent with patient: 35 or more minutes Anticipated discharge: SNF Within: when bed available
--- NOTE | 2016-06-05 13:38 | Progress Note ---
Provider Note Provider Note: ADDENDUM: Add doxycycline for MRSA in sputum.
[2016-06-05] MEDS ORDERED: DOXYCYCLINE HYCLATE 100 MG TABLET PO ONE (14:00)
[2016-06-05] MEDS: RISPERIDONE 1 MG TABLET PO SCH (21:01)
[2016-06-05] MEDS: SIMVASTATIN 10 MG TABLET PO SCH (21:02)
[2016-06-05] MEDS: DOXYCYCLINE HYCLATE 100 MG TABLET PO SCH (21:02)
[2016-06-06] MEDS: PIPERACILLIN SODIUM/TAZOBACTAM 3.375 GM in NORMAL SALINE 100 ML IV SCH ×4 (00:35→17:36)
[2016-06-06] MEDS: ACETAMINOPHEN 325 MG TABLET PO PRN (00:43)
[2016-06-06 05:34] LABS: ABSOLUTE EOSINOPHILS # (AUTO) 0.8 10^3/uL (0.0-0.6); ABSOLUTE LYMPHOCYTES (AUTO) 1.2 10^3/uL (0.5-4.7); ABSOLUTE MONOCYTES (AUTO) 0.7 10^3/uL (0.1-1.4); ABSOLUTE NEUT (AUTO) 5.3 10^3/uL (1.7-8.2); BASOPHILS % (AUTO) 0.6 % (0-2); EOSINOPHILS % (AUTO) 9.8 % (0-6); HEMATOCRIT 26.8 % (37.9-51.0); HEMOGLOBIN 9.3 g/dL (13.5-17.0); HGB HCT DIFFERENCE 1.1; LYMPHOCYTES % (AUTO) 14.6 % (13-45); MEAN CORPUSCULAR HEMOGLOBIN 32.8 pg (27.0-33.4); MEAN CORPUSCULAR HGB CONC 34.6 g/dL (32.0-36.0); MEAN CORPUSCULAR VOLUME 95 fl (80-97); RED BLOOD COUNT 2.83 10^6/uL (4.35-5.55); RED CELL DISTRIBUTION WIDTH 14.4 % (11.5-14.0)
[2016-06-06 06:00] LABS: ANION GAP 14 (5-19); BLOOD UREA NITROGEN 12 mg/dL (7-20); CALCIUM 8.7 mg/dL (8.4-10.2); CARBON DIOXIDE 18 mmol/L (22-30); CHLORIDE 111 mmol/L (98-107); CREATININE RESULT 0.92 mg/dL (0.52-1.25); GLUCOSE 96 mg/dL (75-110); POTASSIUM 3.6 mmol/L (3.6-5.0); SODIUM 143.3 mmol/L (137-145)
[2016-06-06] MEDS: MESALAMINE 400 MG CAPSULE.DR PO SCH ×3 (06:58→21:13)
[2016-06-06] MEDS: LEVETIRACETAM 500 MG TABLET PO SCH ×2 (06:58→17:37)
[2016-06-06] MEDS: ENOXAPARIN SODIUM INJ 40 MG/0.4 ML DISP.SYRIN SUBCUT SCH (08:15)
[2016-06-06] MEDS: LACTOBACILLUS ACIDOPHILUS 250 MG TAB PO SCH ×2 (11:07→17:37)
[2016-06-06] MEDS: OMEGA-3 ACID ETHYL ESTERS 1 GM CAPSULE PO SCH (11:07)
[2016-06-06] MEDS: DOXYCYCLINE HYCLATE 100 MG TABLET PO SCH ×2 (11:07→21:13)
[2016-06-06] MEDS: FERROUS SULFATE 325 MG TABLET PO SCH (11:08)
[2016-06-06] MEDS: MULTIVITAMIN TABLET PO SCH (11:08)
[2016-06-06] MEDS: ASPIRIN 81 MG TABLET, ENT COATED PO SCH (11:08)
--- NOTE | 2016-06-06 15:07 | PDOC PROGRESS REPORT ---
Subjective Progress Note for:: 06/06/16 Subjective:: Patient has continued agitation and confusion. His daughter states to nursing staff that this is not usual for him. Physical Exam Vital Signs: Temp Pulse Resp BP Pulse Ox 98.1 F 62 19 153/79 H 96 06/06/16 10:51 06/06/16 13:25 06/06/16 10:51 06/06/16 10:51 06/06/16 10:51 Intake & Output 06/05/16 06/06/16 06/07/16 06:59 06:59 06:59 Intake Total 1382 486 0 Balance 1382 486 0 Weight 82 kg 82 kg GENERAL: No acute distress HEENT: Conjunctiva clear, nonicteric, moist mucous membranes, no JVD, midline trachea RESPIRATORY: Clear to auscultation bilaterally, no wheezes, no rhonchi CARDIAC: Regular rate and rhythm, no murmurs/gallops/rubs ABDOMEN: Soft, nondistended, nontender, positive bowel sounds, no rebound, no guarding EXTREMETIES: No edema, cyanosis, clubbing NEUROLOGIC: Alert, disoriented, CN's grossly intact. Remote left hemiparesis SKIN: No rash, wounds PSYCH: Unusual affect Results Laboratory Results: 06/06/16 04:28 06/06/16 04:28 06/06/16 06/06/16 04:28 04:28 WBC 8.0 RBC 2.83 L Hgb 9.3 L Hct 26.8 L MCV 95 MCH 32.8 MCHC 34.6 RDW 14.4 H Plt Count 241 Seg Neutrophils % 66.0 Lymphocytes % 14.6 Monocytes % 9.0 Eosinophils % 9.8 H Basophils % 0.6 Absolute Neutrophils 5.3 Absolute Lymphocytes 1.2 Absolute Monocytes 0.7 Absolute Eosinophils 0.8 H Absolute Basophils 0.0 Sodium 143.3 Potassium 3.6 Chloride 111 H Carbon Dioxide 18 L Anion Gap 14 BUN 12 Creatinine 0.92 Est GFR ( Amer) > 60 Est GFR (Non-Af Amer) > 60 Glucose 96 Calcium 8.7 06/03/16 10:10 Sputum Gram Stain - Final 06/03/16 10:10 Sputum Sputum Culture - Final Mrsa (Meth Resis Staph Aureus) C.albicans/C.dubliniensis Normal Emilie 05/30/16 05/30/16 05/31/16 21:05 21:05 03:15 Creatine Kinase 85 98 CK-MB (CK-2) 1.53 Troponin I 0.013 05/31/16 05/31/16 05/31/16 03:15 09:20 09:20 Creatine Kinase 113 CK-MB (CK-2) 1.70 2.05 Troponin I 0.015 < 0.012 Impressions: Lung Scan-VQ NM 05/30/16 00:00 IMPRESSION: No ventilation-perfusion mismatches. Head CT 05/30/16 15:27 IMPRESSION: CHRONIC CHANGES OF ATROPHY AND MICROVASCULAR ISCHEMIA. NO ACUTE PROCESS. Chest X-Ray 06/02/16 00:00 IMPRESSION: Stable. Assessment & Plan - Diagnosis (1) Acute encephalopathy Is this a current diagnosis for this admission?: YesPlan: Patient was hospitalized last month for similar presentation thought to be secondary to clinical stroke. I'll check MRI of the brain. Other contributing factors include urinary tract infection. (2) Sepsis Qualifiers: Sepsis type: sepsis due to unspecified organism Qualified Code(s): A41.9 - Sepsis, unspecified organism Is this a current diagnosis for this admission?: YesPlan: Secondary to MRSA pneumonia and gram-negative urinary tract infection. Patient is now afebrile. Continue IV Zosyn and oral doxycycline for now. (3) UTI (urinary tract infection) Qualifiers: Urinary tract infection type: acute cystitis Hematuria presence: without hematuria Qualified Code(s): N30.00 - Acute cystitis without hematuria Is this a current diagnosis for this admission?: YesPlan: Continue IV Zosyn pending further culture and sensitivity. (4) Healthcare-associated pneumonia Is this a current diagnosis for this admission?: YesPlan: Continue doxycycline for MRSA in sputum. (5) New onset seizure Is this a current diagnosis for this admission?: Yes (6) History of CVA (cerebrovascular accident) Is this a current diagnosis for this admission?: YesPlan: Continue aspirin and Zocor. Patient has residual left hemiparesis and expressive aphasia. (7) Syncope Qualifiers: Syncope type: unspecified Qualified Code(s): R55 - Syncope and collapse Is this a current diagnosis for this admission?: Yes (8) Ambulatory dysfunction Is this a current diagnosis for this admission?: YesPlan: Continue physical therapy. Patient will need to go back to custodial facility for rehabilitation and ongoing care. (9) Benign essential hypertension Is this a current diagnosis for this admission?: Yes (10) Inflammatory bowel disease Is this a current diagnosis for this admission?: YesPlan: Continue mesalamine. - Time Time Spent with patient: 35 or more minutes
[2016-06-06] MEDS ORDERED: MAGNESIUM HYDROXIDE SUSP 30 ML UDCUP PO ONE (17:30)
[2016-06-06] MEDS: SIMVASTATIN 10 MG TABLET PO SCH (21:14)
[2016-06-06] MEDS: RISPERIDONE 1 MG TABLET PO SCH (21:14)
[2016-06-07] MEDS: PIPERACILLIN SODIUM/TAZOBACTAM 3.375 GM in NORMAL SALINE 100 ML IV SCH ×2 (01:06→05:22)
[2016-06-07] MEDS: LEVETIRACETAM 500 MG TABLET PO SCH (05:22)
[2016-06-07] MEDS: MESALAMINE 400 MG CAPSULE.DR PO SCH ×3 (05:22→22:06)
[2016-06-07] MEDS: ENOXAPARIN SODIUM INJ 40 MG/0.4 ML DISP.SYRIN SUBCUT SCH (07:53)
[2016-06-07] MEDS: FERROUS SULFATE 325 MG TABLET PO SCH (10:48)
[2016-06-07] MEDS: MULTIVITAMIN TABLET PO SCH (10:48)
[2016-06-07] MEDS: DOXYCYCLINE HYCLATE 100 MG TABLET PO SCH ×2 (10:48→22:06)
[2016-06-07] MEDS: LACTOBACILLUS ACIDOPHILUS 250 MG TAB PO SCH ×2 (10:48→17:30)
[2016-06-07] MEDS: OMEGA-3 ACID ETHYL ESTERS 1 GM CAPSULE PO SCH (10:48)
[2016-06-07] MEDS: ASPIRIN 81 MG TABLET, ENT COATED PO SCH (10:50)
--- NOTE | 2016-06-07 17:57 | PDOC PROGRESS REPORT ---
Subjective Progress Note for:: 06/07/16 Subjective:: Patient is alert and appropriate today and has a normal conversation with me during visit. Patient denies fever, chills, headache, new focal weakness, chest pain, shortness of breath, abdominal pain, nausea, vomiting, diarrhea, constipation. Physical Exam Vital Signs: Temp Pulse Resp BP Pulse Ox 98.0 F 75 22 H 145/71 H 96 06/07/16 15:57 06/07/16 15:57 06/07/16 15:57 06/07/16 15:57 06/07/16 15:57 Intake & Output 06/06/16 06/07/16 06/08/16 06:59 06:59 06:59 Intake Total 486 890 450 Balance 486 890 450 Weight 82 kg 82.6 kg GENERAL: No acute distress HEENT: Conjunctiva clear, nonicteric, moist mucous membranes, no JVD, midline trachea RESPIRATORY: Clear to auscultation bilaterally, no wheezes, no rhonchi CARDIAC: Regular rate and rhythm, no murmurs/gallops/rubs ABDOMEN: Soft, nondistended, nontender, positive bowel sounds, no rebound, no guarding EXTREMETIES: No edema, cyanosis, clubbing NEUROLOGIC: Alert, oriented to person/place/time, CN's grossly intact, remote left hemiparesis SKIN: No rash, wounds PSYCH: Normal mood, normal affect Results Laboratory Results: 06/06/16 04:28 06/06/16 04:28 06/02/16 09:30 Blood Blood Culture - Final NO GROWTH IN 5 DAYS 06/02/16 08:06 Blood Blood Culture - Final NO GROWTH IN 5 DAYS 06/02/16 18:00 Catheterized Urine Urine Culture - Final Escherichia Coli 05/30/16 05/30/16 05/31/16 21:05 21:05 03:15 Creatine Kinase 85 98 CK-MB (CK-2) 1.53 Troponin I 0.013 05/31/16 05/31/16 05/31/16 03:15 09:20 09:20 Creatine Kinase 113 CK-MB (CK-2) 1.70 2.05 Troponin I 0.015 < 0.012 Impressions: Lung Scan-VQ NM 05/30/16 00:00 IMPRESSION: No ventilation-perfusion mismatches. Head CT 12/21/16 15:27 IMPRESSION: CHRONIC CHANGES OF ATROPHY AND MICROVASCULAR ISCHEMIA. NO ACUTE PROCESS. Chest X-Ray 06/02/16 00:00 IMPRESSION: Stable. Head MRI 06/06/16 11:58 IMPRESSION: ATROPHY AND CHRONIC MICRO-VASCULAR ISCHEMIC CHANGES. OTHERWISE NORMAL MRI OF THE BRAIN WITHOUT INTRAVENOUS GADOLINIUM CONTRAST. Assessment & Plan - Diagnosis (1) Acute encephalopathy Is this a current diagnosis for this admission?: YesPlan: Much improved today. Patient was hospitalized last month for similar presentation thought to be secondary to clinical stroke. Likely secondary to urinary tract infection. MRI of the brain shows chronic ischemic changes but no acute findings. (2) Sepsis Qualifiers: Sepsis type: sepsis due to unspecified organism Qualified Code(s): A41.9 - Sepsis, unspecified organism Is this a current diagnosis for this admission?: YesPlan: Secondary to MRSA pneumonia and gram-negative urinary tract infection. Patient is now afebrile. Continue oral doxycycline for now. Discontinue IV Zosyn. (3) UTI (urinary tract infection) Qualifiers: Urinary tract infection type: acute cystitis Hematuria presence: without hematuria Qualified Code(s): N30.00 - Acute cystitis without hematuria Is this a current diagnosis for this admission?: YesPlan: Continue doxycycline. Discontinue IV Zosyn. (4) Healthcare-associated pneumonia Is this a current diagnosis for this admission?: YesPlan: Continue doxycycline for MRSA in sputum. (5) New onset seizure Is this a current diagnosis for this admission?: YesPlan: Patient had suspected seizure based on syncopal episode. He had no witnessed seizure activity however. EEG was normal. Encephalopathy can be explained by infectious disease issues. I would like to discontinue Keppra. (6) History of CVA (cerebrovascular accident) Is this a current diagnosis for this admission?: YesPlan: Continue aspirin and Zocor. Patient has residual left hemiparesis. (7) Syncope Qualifiers: Syncope type: unspecified Qualified Code(s): R55 - Syncope and collapse Is this a current diagnosis for this admission?: Yes (8) Ambulatory dysfunction Is this a current diagnosis for this admission?: YesPlan: Continue physical therapy. Patient will need to go back to care home facility for rehabilitation and ongoing care. (9) Benign essential hypertension Is this a current diagnosis for this admission?: Yes (10) Inflammatory bowel disease Is this a current diagnosis for this admission?: YesPlan: Continue mesalamine. - Time Time Spent with patient: 35 or more minutes
[2016-06-07] MEDS: RISPERIDONE 1 MG TABLET PO SCH (19:52)
[2016-06-07] MEDS: SIMVASTATIN 10 MG TABLET PO SCH (22:06)
[2016-06-08] MEDS: MESALAMINE 400 MG CAPSULE.DR PO SCH ×3 (05:24→21:13)
[2016-06-08 05:35] LABS: ABSOLUTE BASOPHILS # (AUTO) 0.1 10^3/uL (0.0-0.2); ABSOLUTE EOSINOPHILS # (AUTO) 0.6 10^3/uL (0.0-0.6); ABSOLUTE LYMPHOCYTES (AUTO) 1.4 10^3/uL (0.5-4.7); ABSOLUTE MONOCYTES (AUTO) 0.7 10^3/uL (0.1-1.4); ABSOLUTE NEUT (AUTO) 6.2 10^3/uL (1.7-8.2); BASOPHILS % (AUTO) 0.6 % (0-2); HEMATOCRIT 27.9 % (37.9-51.0); HEMOGLOBIN 9.4 g/dL (13.5-17.0); HGB HCT DIFFERENCE 0.3; LYMPHOCYTES % (AUTO) 15.8 % (13-45); MEAN CORPUSCULAR HEMOGLOBIN 31.9 pg (27.0-33.4); MEAN CORPUSCULAR HGB CONC 33.7 g/dL (32.0-36.0); MEAN CORPUSCULAR VOLUME 95 fl (80-97); MONOCYTES % (AUTO) 7.9 % (3-13); RED BLOOD COUNT 2.95 10^6/uL (4.35-5.55); RED CELL DISTRIBUTION WIDTH 14.4 % (11.5-14.0); SEGMENTED NEUTROPHILS % (AUTO) 68.7 % (42-78)
[2016-06-08 05:57] LABS: ANION GAP 12 (5-19); BLOOD UREA NITROGEN 17 mg/dL (7-20); CALCIUM 8.9 mg/dL (8.4-10.2); CARBON DIOXIDE 21 mmol/L (22-30); CHLORIDE 110 mmol/L (98-107); CREATININE RESULT 0.91 mg/dL (0.52-1.25); GLUCOSE 81 mg/dL (75-110); MAGNESIUM 2.1 mg/dL (1.6-2.3); POTASSIUM 4.1 mmol/L (3.6-5.0)
[2016-06-08] MEDS: DOXYCYCLINE HYCLATE 100 MG TABLET PO SCH ×2 (09:17→21:13)
[2016-06-08] MEDS: FERROUS SULFATE 325 MG TABLET PO SCH (09:17)
[2016-06-08] MEDS: ASPIRIN 81 MG TABLET, ENT COATED PO SCH (09:17)
[2016-06-08] MEDS: OMEGA-3 ACID ETHYL ESTERS 1 GM CAPSULE PO SCH (09:17)
[2016-06-08] MEDS: ENOXAPARIN SODIUM INJ 40 MG/0.4 ML DISP.SYRIN SUBCUT SCH (09:17)
[2016-06-08] MEDS: MULTIVITAMIN TABLET PO SCH (09:17)
[2016-06-08] MEDS: LACTOBACILLUS ACIDOPHILUS 250 MG TAB PO SCH ×2 (09:17→17:59)
--- NOTE | 2016-06-08 14:57 | PDOC PROGRESS REPORT ---
Subjective Progress Note for:: 06/08/16 Subjective:: Patient is alert and appropriate today and has a normal conversation with me during visit. Patient denies fever, chills, headache, new focal weakness, chest pain, shortness of breath, abdominal pain, nausea, vomiting, diarrhea, constipation. Physical Exam Vital Signs: Temp Pulse Resp BP Pulse Ox 97.4 F 55 L 17 119/50 L 95 06/08/16 11:21 06/08/16 14:00 06/08/16 11:21 06/08/16 11:21 06/08/16 11:21 Intake & Output 06/07/16 06/08/16 06/09/16 06:59 06:59 06:59 Intake Total 890 1250 330 Balance 890 1250 330 Weight 82.6 kg 82.8 kg GENERAL: No acute distress HEENT: Conjunctiva clear, nonicteric, moist mucous membranes, no JVD, midline trachea RESPIRATORY: Clear to auscultation bilaterally, no wheezes, no rhonchi CARDIAC: Regular rate and rhythm, no murmurs/gallops/rubs ABDOMEN: Soft, nondistended, nontender, positive bowel sounds, no rebound, no guarding EXTREMETIES: No edema, cyanosis, clubbing NEUROLOGIC: Alert, oriented to person/place/time, CN's grossly intact, remote left hemiparesis SKIN: No rash, wounds PSYCH: Normal mood, normal affect Results Laboratory Results: 06/08/16 04:26 06/08/16 04:26 06/07/16 06/07/16 06/08/16 20:05 20:05 04:26 WBC 9.0 RBC 2.95 L Hgb 9.4 L Hct 27.9 L MCV 95 MCH 31.9 MCHC 33.7 RDW 14.4 H Plt Count 290 Seg Neutrophils % 68.7 Lymphocytes % 15.8 Monocytes % 7.9 Eosinophils % 7.0 H Basophils % 0.6 Absolute Neutrophils 6.2 Absolute Lymphocytes 1.4 Absolute Monocytes 0.7 Absolute Eosinophils 0.6 Absolute Basophils 0.1 Sodium Potassium Chloride Carbon Dioxide Anion Gap BUN Creatinine Est GFR ( Amer) Est GFR (Non-Af Amer) Glucose Calcium Magnesium Stool Occult Blood NEGATIVE Stool for White Cells NO WBCs SEEN 06/08/16 04:26 WBC RBC Hgb Hct MCV MCH MCHC RDW Plt Count Seg Neutrophils % Lymphocytes % Monocytes % Eosinophils % Basophils % Absolute Neutrophils Absolute Lymphocytes Absolute Monocytes Absolute Eosinophils Absolute Basophils Sodium 143.0 Potassium 4.1 Chloride 110 H Carbon Dioxide 21 L Anion Gap 12 BUN 17 Creatinine 0.91 Est GFR ( Amer) > 60 Est GFR (Non-Af Amer) > 60 Glucose 81 Calcium 8.9 Magnesium 2.1 Stool Occult Blood Stool for White Cells 06/02/16 09:30 Blood Blood Culture - Final NO GROWTH IN 5 DAYS 05/30/16 05/30/16 05/31/16 21:05 21:05 03:15 Creatine Kinase 85 98 CK-MB (CK-2) 1.53 Troponin I 0.013 05/31/16 05/31/16 05/31/16 03:15 09:20 09:20 Creatine Kinase 113 CK-MB (CK-2) 1.70 2.05 Troponin I 0.015 < 0.012 Impressions: Lung Scan-VQ NM 05/30/16 00:00 IMPRESSION: No ventilation-perfusion mismatches. Head CT 05/30/16 15:27 IMPRESSION: CHRONIC CHANGES OF ATROPHY AND MICROVASCULAR ISCHEMIA. NO ACUTE PROCESS. Chest X-Ray 06/02/16 00:00 IMPRESSION: Stable. Head MRI 06/06/16 11:58 IMPRESSION: ATROPHY AND CHRONIC MICRO-VASCULAR ISCHEMIC CHANGES. OTHERWISE NORMAL MRI OF THE BRAIN WITHOUT INTRAVENOUS GADOLINIUM CONTRAST. Assessment & Plan - Diagnosis (1) Acute encephalopathy Is this a current diagnosis for this admission?: YesPlan: Much improved. Patient was hospitalized last month for similar presentation thought to be secondary to clinical stroke. Likely secondary to urinary tract infection. MRI of the brain shows chronic ischemic changes but no acute findings. (2) Sepsis Qualifiers: Sepsis type: sepsis due to unspecified organism Qualified Code(s): A41.9 - Sepsis, unspecified organism Is this a current diagnosis for this admission?: YesPlan: Secondary to MRSA pneumonia and gram-negative urinary tract infection. Patient is now afebrile. Continue oral doxycycline for now. (3) UTI (urinary tract infection) Qualifiers: Urinary tract infection type: acute cystitis Hematuria presence: without hematuria Qualified Code(s): N30.00 - Acute cystitis without hematuria Is this a current diagnosis for this admission?: YesPlan: Continue doxycycline until 06/16/2015. (4) Healthcare-associated pneumonia Is this a current diagnosis for this admission?: YesPlan: Continue doxycycline for MRSA in sputum. (5) New onset seizure Is this a current diagnosis for this admission?: YesPlan: Patient had suspected seizure based on syncopal episode. He had no witnessed seizure activity however. EEG was normal. Encephalopathy can be explained by infectious disease issues. Discontinued Keppra. (6) History of CVA (cerebrovascular accident) Is this a current diagnosis for this admission?: YesPlan: Continue aspirin and Zocor. Patient has residual left hemiparesis. (7) Syncope Qualifiers: Syncope type: unspecified Qualified Code(s): R55 - Syncope and collapse Is this a current diagnosis for this admission?: Yes (8) Ambulatory dysfunction Is this a current diagnosis for this admission?: YesPlan: Continue physical therapy. Patient will need to go back to shelter facility for rehabilitation and ongoing care. (9) Benign essential hypertension Is this a current diagnosis for this admission?: Yes (10) Inflammatory bowel disease Is this a current diagnosis for this admission?: YesPlan: Continue mesalamine. - Time Time Spent with patient: 25-34 minutes
[2016-06-08] MEDS: RISPERIDONE 1 MG TABLET PO SCH (20:21)
[2016-06-08] MEDS: SIMVASTATIN 10 MG TABLET PO SCH (21:13)
[2016-06-08] MEDS: ACETAMINOPHEN 325 MG TABLET PO PRN (21:19)
[2016-06-09] MEDS: MESALAMINE 400 MG CAPSULE.DR PO SCH ×3 (05:16→21:53)
[2016-06-09] MEDS: ACETAMINOPHEN 325 MG TABLET PO PRN (06:41)
[2016-06-09] MEDS: ENOXAPARIN SODIUM INJ 40 MG/0.4 ML DISP.SYRIN SUBCUT SCH (08:46)
[2016-06-09] MEDS ORDERED: TRAMADOL HCL 50 MG TABLET PO PRN (09:40)
--- NOTE | 2016-06-09 09:45 | PDOC PROGRESS REPORT ---
Subjective Progress Note for:: 06/09/16 Subjective:: Nursing reports the patient has been refusing Lovenox injection because they are painful. Patient complains of chronic low back pain and pain in his leg when he tries to stand. Patient denies fever, chills, headache, new focal weakness, chest pain, shortness of breath, abdominal pain, nausea, vomiting, diarrhea, constipation. Physical Exam Vital Signs: Temp Pulse Resp BP Pulse Ox 97.4 F 61 18 147/66 H 95 06/09/16 07:29 06/09/16 07:29 06/09/16 07:29 06/09/16 07:29 06/09/16 07:29 Intake & Output 06/08/16 06/09/16 06/10/16 06:59 06:59 06:59 Intake Total 1250 730 Balance 1250 730 Weight 82.8 kg 84.8 kg GENERAL: No acute distress HEENT: Conjunctiva clear, nonicteric, moist mucous membranes, no JVD, midline trachea RESPIRATORY: Clear to auscultation bilaterally, no wheezes, no rhonchi CARDIAC: Regular rate and rhythm, no murmurs/gallops/rubs ABDOMEN: Soft, nondistended, nontender, positive bowel sounds, no rebound, no guarding EXTREMETIES: No edema, cyanosis, clubbing NEUROLOGIC: Alert, oriented to person/place/time, CN's grossly intact, remote left hemiparesis SKIN: No rash, wounds PSYCH: Normal mood, normal affect Results Laboratory Results: 06/08/16 04:26 06/08/16 04:26 05/30/16 05/30/16 05/31/16 21:05 21:05 03:15 Creatine Kinase 85 98 CK-MB (CK-2) 1.53 Troponin I 0.013 05/31/16 05/31/16 05/31/16 03:15 09:20 09:20 Creatine Kinase 113 CK-MB (CK-2) 1.70 2.05 Troponin I 0.015 < 0.012 Impressions: Lung Scan-VQ NM 05/30/16 00:00 IMPRESSION: No ventilation-perfusion mismatches. Head CT 05/30/16 15:27 IMPRESSION: CHRONIC CHANGES OF ATROPHY AND MICROVASCULAR ISCHEMIA. NO ACUTE PROCESS. Chest X-Ray 06/02/16 00:00 IMPRESSION: Stable. Head MRI 06/06/16 11:58 IMPRESSION: ATROPHY AND CHRONIC MICRO-VASCULAR ISCHEMIC CHANGES. OTHERWISE NORMAL MRI OF THE BRAIN WITHOUT INTRAVENOUS GADOLINIUM CONTRAST. Assessment & Plan - Diagnosis (1) Acute encephalopathy Is this a current diagnosis for this admission?: YesPlan: Resolved. Patient was hospitalized last month for similar presentation thought to be secondary to clinical stroke. Likely secondary to urinary tract infection. MRI of the brain shows chronic ischemic changes but no acute findings. (2) Sepsis Qualifiers: Sepsis type: sepsis due to unspecified organism Qualified Code(s): A41.9 - Sepsis, unspecified organism Is this a current diagnosis for this admission?: YesPlan: Secondary to MRSA pneumonia and gram-negative urinary tract infection. Patient is now afebrile. Continue oral doxycycline until 06/16/2016. (3) UTI (urinary tract infection) Qualifiers: Urinary tract infection type: acute cystitis Hematuria presence: without hematuria Qualified Code(s): N30.00 - Acute cystitis without hematuria Is this a current diagnosis for this admission?: YesPlan: Continue doxycycline until 06/16/2016. (4) Healthcare-associated pneumonia Is this a current diagnosis for this admission?: YesPlan: Continue doxycycline for MRSA in sputum. (5) New onset seizure Is this a current diagnosis for this admission?: YesPlan: Patient had suspected seizure based on syncopal episode. He had no witnessed seizure activity however. EEG was normal. Encephalopathy can be explained by infectious disease issues. Discontinued Keppra. (6) History of CVA (cerebrovascular accident) Is this a current diagnosis for this admission?: YesPlan: Continue aspirin and Zocor. Patient has residual left hemiparesis. Continue physical therapy/occupational therapy. [facility]. (7) Syncope Qualifiers: Syncope type: unspecified Qualified Code(s): R55 - Syncope and collapse Is this a current diagnosis for this admission?: Yes (8) Ambulatory dysfunction Is this a current diagnosis for this admission?: YesPlan: Continue physical therapy. Patient will need to go [facility] to [facility] for [facility] and ongoing care. (9) Benign essential hypertension Is this a current diagnosis for this admission?: Yes (10) Inflammatory bowel disease Is this a current diagnosis for this admission?: YesPlan: Continue mesalamine. (11) DVT prophylaxis Is this a current diagnosis for this admission?: YesPlan: Patient is declining Lovenox injections, but we should continue to encourage this as he is at high risk for DVT given prior stroke and current immobility. I will order SCDs as well. Continue NIYAH garcia. (12) Back pain Is this a current diagnosis for this admission?: YesPlan: Continue when necessary Tylenol. Order tramadol as well. I will try to avoid anything stronger given patient's tendency toward delirium. - Time Time Spent with patient: 25-34 minutes
[2016-06-09] MEDS: DOXYCYCLINE HYCLATE 100 MG TABLET PO SCH ×2 (10:28→21:53)
[2016-06-09] MEDS: MULTIVITAMIN TABLET PO SCH (10:28)
[2016-06-09] MEDS: FERROUS SULFATE 325 MG TABLET PO SCH (10:29)
[2016-06-09] MEDS: LACTOBACILLUS ACIDOPHILUS 250 MG TAB PO SCH ×2 (10:29→17:33)
[2016-06-09] MEDS: ASPIRIN 81 MG TABLET, ENT COATED PO SCH (10:29)
[2016-06-09] MEDS: OMEGA-3 ACID ETHYL ESTERS 1 GM CAPSULE PO SCH (10:29)
[2016-06-09] MEDS: RISPERIDONE 1 MG TABLET PO SCH (20:18)
[2016-06-09] MEDS: SIMVASTATIN 10 MG TABLET PO SCH (21:53)
[2016-06-10] MEDS: ACETAMINOPHEN 325 MG TABLET PO PRN ×2 (00:11→12:03)
[2016-06-10] MEDS: MESALAMINE 400 MG CAPSULE.DR PO SCH ×3 (06:15→22:14)
[2016-06-10] MEDS: ENOXAPARIN SODIUM INJ 40 MG/0.4 ML DISP.SYRIN SUBCUT SCH (07:50)
[2016-06-10] MEDS: LACTOBACILLUS ACIDOPHILUS 250 MG TAB PO SCH ×2 (10:15→17:22)
[2016-06-10] MEDS: DOXYCYCLINE HYCLATE 100 MG TABLET PO SCH ×2 (10:15→22:14)
[2016-06-10] MEDS: FERROUS SULFATE 325 MG TABLET PO SCH (10:16)
[2016-06-10] MEDS: MULTIVITAMIN TABLET PO SCH (10:16)
[2016-06-10] MEDS: ASPIRIN 81 MG TABLET, ENT COATED PO SCH (10:16)
[2016-06-10] MEDS: OMEGA-3 ACID ETHYL ESTERS 1 GM CAPSULE PO SCH (10:16)
--- NOTE | 2016-06-10 11:41 | PDOC PROGRESS REPORT ---
Subjective Progress Note for:: 06/10/16 Subjective:: Nursing reports no new issues. Patient has no complaints. Patient denies fever , chills, headache, new focal weakness, chest pain, shortness of breath, abdominal pain, nausea, vomiting, diarrhea, constipation. Physical Exam Vital Signs: Temp Pulse Resp BP Pulse Ox 97.7 F 61 17 145/70 H 97 06/10/16 07:55 06/10/16 07:55 06/10/16 07:55 06/10/16 07:55 06/10/16 07:55 Intake & Output 06/09/16 06/10/16 06/11/16 06:59 06:59 06:59 Intake Total 730 650 Balance 730 650 Weight 84.8 kg 83.5 kg GENERAL: No acute distress HEENT: Conjunctiva clear, nonicteric, moist mucous membranes, no JVD, midline trachea RESPIRATORY: Clear to auscultation bilaterally, no wheezes, no rhonchi CARDIAC: Regular rate and rhythm, no murmurs/gallops/rubs ABDOMEN: Soft, nondistended, nontender, positive bowel sounds, no rebound, no guarding EXTREMETIES: No edema, cyanosis, clubbing NEUROLOGIC: Alert, oriented to person/place/time, CN's grossly intact, remote left hemiparesis SKIN: No rash, wounds PSYCH: Normal mood, normal affect Results Laboratory Results: 06/08/16 04:26 06/08/16 04:26 06/07/16 20:05 Stool - Stool - Final 06/07/16 20:05 Stool - Stool Stool Culture - Final NO SALMONELLA, SHIGELLA, CAMPYLOBACTER, OR E.COLI 0157 RECOVERED. NEGATIVE FOR SHIGA TOXINS 1&2. 05/30/16 05/30/16 05/31/16 21:05 21:05 03:15 Creatine Kinase 85 98 CK-MB (CK-2) 1.53 Troponin I 0.013 05/31/16 05/31/16 05/31/16 03:15 09:20 09:20 Creatine Kinase 113 CK-MB (CK-2) 1.70 2.05 Troponin I 0.015 < 0.012 Impressions: Lung Scan-VQ NM 05/30/16 00:00 IMPRESSION: No ventilation-perfusion mismatches. Head CT 05/30/16 15:27 IMPRESSION: CHRONIC CHANGES OF ATROPHY AND MICROVASCULAR ISCHEMIA. NO ACUTE PROCESS. Chest X-Ray 06/02/16 00:00 IMPRESSION: Stable. Head MRI 06/06/16 11:58 IMPRESSION: ATROPHY AND CHRONIC MICRO-VASCULAR ISCHEMIC CHANGES. OTHERWISE NORMAL MRI OF THE BRAIN WITHOUT INTRAVENOUS GADOLINIUM CONTRAST. Assessment & Plan - Diagnosis (1) Acute encephalopathy Is this a current diagnosis for this admission?: YesPlan: Resolved. Patient was hospitalized last month for similar presentation thought to be secondary to clinical stroke. Likely secondary to urinary tract infection. MRI of the brain shows chronic ischemic changes but no acute findings. (2) Sepsis Qualifiers: Sepsis type: sepsis due to unspecified organism Qualified Code(s): A41.9 - Sepsis, unspecified organism Is this a current diagnosis for this admission?: YesPlan: Secondary to MRSA pneumonia and gram-negative urinary tract infection. Patient is now afebrile. Continue oral doxycycline until 06/16/2016. (3) UTI (urinary tract infection) Qualifiers: Urinary tract infection type: acute cystitis Hematuria presence: without hematuria Qualified Code(s): N30.00 - Acute cystitis without hematuria Is this a current diagnosis for this admission?: YesPlan: Continue doxycycline until 06/16/2016. (4) Healthcare-associated pneumonia Is this a current diagnosis for this admission?: YesPlan: Continue doxycycline for MRSA in sputum. (5) New onset seizure Is this a current diagnosis for this admission?: YesPlan: Patient had suspected seizure based on syncopal episode. He had no witnessed seizure activity however. EEG was normal. Encephalopathy can be explained by infectious disease issues. Discontinued Keppra. (6) History of CVA (cerebrovascular accident) Is this a current diagnosis for this admission?: YesPlan: Continue aspirin and Zocor. Patient has residual left hemiparesis. Continue physical therapy/occupational therapy. Patient will be referred to [facility] for rehabilitation. (7) Syncope Qualifiers: Syncope type: unspecified Qualified Code(s): R55 - Syncope and collapse Is this a current diagnosis for this admission?: Yes (8) Ambulatory dysfunction Is this a current diagnosis for this admission?: YesPlan: Continue physical therapy. Patient will need to go back to [facility] for rehabilitation and ongoing care. (9) Benign essential hypertension Is this a current diagnosis for this admission?: Yes (10) Inflammatory bowel disease Is this a current diagnosis for this admission?: YesPlan: Continue mesalamine. (11) DVT prophylaxis Is this a current diagnosis for this admission?: YesPlan: Patient is declining Lovenox injections, but we should continue to encourage this as he is at high risk for DVT given prior stroke and current immobility. I will order SCDs as well. Continue NIYAH garcia. (12) Back pain Is this a current diagnosis for this admission?: YesPlan: Continue when necessary Tylenol or tramadol. I will try to avoid anything stronger given patient's tendency toward delirium. - Time Time Spent with patient: 25-34 minutes Anticipated discharge: SNF Within: when bed available
[2016-06-10] MEDS: RISPERIDONE 1 MG TABLET PO SCH (20:55)
[2016-06-10] MEDS: SIMVASTATIN 10 MG TABLET PO SCH (22:14)
[2016-06-10] MEDS: LEVETIRACETAM 500 MG TABLET PO SCH (22:14)
[2016-06-11] MEDS: ACETAMINOPHEN 325 MG TABLET PO PRN (00:04)
[2016-06-11] MEDS: MESALAMINE 400 MG CAPSULE.DR PO SCH ×2 (06:48→14:18)
[2016-06-11] MEDS: ENOXAPARIN SODIUM INJ 40 MG/0.4 ML DISP.SYRIN SUBCUT SCH (08:13)
[2016-06-11] MEDS: DOXYCYCLINE HYCLATE 100 MG TABLET PO SCH (09:03)
[2016-06-11] MEDS: MULTIVITAMIN TABLET PO SCH (09:03)
[2016-06-11] MEDS: OMEGA-3 ACID ETHYL ESTERS 1 GM CAPSULE PO SCH (09:03)
[2016-06-11] MEDS: LEVETIRACETAM 500 MG TABLET PO SCH (09:03)
[2016-06-11] MEDS: FERROUS SULFATE 325 MG TABLET PO SCH (09:03)
[2016-06-11] MEDS: LACTOBACILLUS ACIDOPHILUS 250 MG TAB PO SCH (09:04)
[2016-06-11] MEDS: ASPIRIN 81 MG TABLET, ENT COATED PO SCH (09:05)
--- NOTE | 2016-06-11 09:25 | PDOC TRANSFER SUMMARY ---
General - Admit/Disc Date/PCP Admission Date/Primary Care Provider: 05/30/16 17:47 Discharge Date: 06/11/16 - Discharge Diagnosis (1) Acute encephalopathy Is this a current diagnosis for this admission?: YesSummary: Patient presented with altered mental status. He had a similar episode approximately one month ago was thought to be a TIA in nature. On this particular occasion he had some preceding findings suggestive of possible seizure, in particular he had bowel incontinence and syncope. Given his history of prior stroke he was started on Keppra. EEG showed no seizure activity. I think given patient's history of stroke it would probably be prudent to maintain him on Keppra. MRI of the brain showed no acute process. His mental status normalized throughout hospitalization he was alert and oriented by time of discharge. He was also treated for infectious disease issues mentioned below which may have contributed to his encephalopathy. (2) Sepsis Is this a current diagnosis for this admission?: YesSummary: Patient had sepsis secondary to pneumonia and urinary tract infection. He was treated for these issues as mentioned below. (3) UTI (urinary tract infection) Is this a current diagnosis for this admission?: YesSummary: Patient was found to have Escherichia coli urinary tract infection. This organism is sensitive to doxycycline. He is finishing a course of doxycycline and will require several more days post discharge. (4) Healthcare-associated pneumonia Is this a current diagnosis for this admission?: YesSummary: Patient had a healthcare associated pneumonia. Sputum culture grew MRSA sensitive to doxycycline, as well as Kelsie species. Patient has been on doxycycline and will need 7 more days of doxycycline. I will also treat him with 10 days of Diflucan for Kelsie species. He will need follow-up chest x- ray in 3 weeks. (5) New onset seizure Is this a current diagnosis for this admission?: Yes (6) History of CVA (cerebrovascular accident) Is this a current diagnosis for this admission?: Yes (7) Syncope Is this a current diagnosis for this admission?: Yes (8) Ambulatory dysfunction Is this a current diagnosis for this admission?: YesSummary: Patient has acute on chronic ambulatory dysfunction. He has remote stroke with left sided weakness. He has been undergoing physical therapy while in the hospital but will need ongoing rehabilitative care post discharge. He is going to be going to [facility] for rehabilitation post discharge. (9) Benign essential hypertension Is this a current diagnosis for this admission?: Yes (10) Inflammatory bowel disease Is this a current diagnosis for this admission?: Yes (11) DVT prophylaxis Is this a current diagnosis for this admission?: Yes (12) Back pain Is this a current diagnosis for this admission?: Yes - Additional Information Resuscitation Status: Full Code Discharge [facility]: [facility] - [facility], regular liquids Discharge Activity: Activity As Tolerated Home Medications: Aspirin [Aspirin EC] 81 mg PO DAILY 11/04/13 Simvastatin 10 mg PO DAILY 11/04/13 Acidoph/L.bulg/Bif.b/S.thermop [Bacid Caplet] 1 tab PO BID #28 cap 11/11/13 Mesalamine [Delzicol] 2 tab PO TID 04/12/16 Umeclidinium Brm/Vilanterol Tr [Anoro Ellipta 62.5-25 Mcg INH] 1 puff .ROUTE DAILY 04/12/16 Ferrous Sulfate [Iron] 325 mg PO DAILY 04/13/16 Fish Oil/Dha/Epa [Fish Oil 1,200 mg Fish Oil] 1,200 mg PO DAILY 04/13/16 Folic Acid/Multivit-Min/Lutein [Centrum Silver Chewable Tablet] 1 each PO DAILY 04/13/16 Acetaminophen [Tylenol 325 mg Tablet] 650 mg PO Q4HP PRN tablet 06/11/16 Albuterol Sulfate [Ventolin 0.083% Neb 2.5 mg/3 mL Ampul] 2.5 mg NEB RTQ6HP PRN vial.neb 06/11/16 Doxycycline Hyclate [Vibramycin 100 mg Tablet] 100 mg PO Q12 #14 tablet Fluconazole [Diflucan 100 Mg Tablet] 100 mg PO DAILY #10 tablet 06/11/16 Levetiracetam [Keppra 500 mg Tablet] 500 mg PO Q12 tablet 06/11/16 Ondansetron [Zofran Odt 4 mg Tablet] 4 mg PO Q6HP PRN tab.rapdis 06/11/16 Tramadol HCl [Ultram 50 mg Tablet] 50 mg PO Q8HP PRN #10 tablet 06/11/16 History of Present Illness Admission Date/PCP: 05/30/16 17:47 Hospital Course Hospital Course: See above Physical Exam Vital Signs: Temp Pulse Resp BP Pulse Ox 97.5 F 63 16 142/68 H 94 06/11/16 04:51 06/11/16 07:00 06/11/16 04:51 06/11/16 04:51 06/11/16 04:51 Intake & Output 06/10/16 06/11/16 06/12/16 06:59 06:59 06:59 Intake Total 650 850 Balance 650 850 Weight 83.5 kg 83.6 kg GENERAL: No acute distress HEENT: Conjunctiva clear, nonicteric, moist mucous membranes, no JVD, midline trachea RESPIRATORY: Bilateral rhonchi in anterior lung mcgrath, good air excursion, no respiratory distress CARDIAC: Regular rate and rhythm, no murmurs/gallops/rubs ABDOMEN: Soft, nondistended, nontender, positive bowel sounds, no rebound, no guarding EXTREMETIES: No edema, cyanosis, clubbing NEUROLOGIC: Alert, oriented to person/place/time, CN's grossly intact, old left hemiparesis SKIN: No rash, wounds PSYCH: Normal mood, normal affect Results Laboratory Results: 06/08/16 04:26 06/08/16 04:26 05/30/16 05/30/16 05/31/16 21:05 21:05 03:15 Creatine Kinase 85 98 CK-MB (CK-2) 1.53 Troponin I 0.013 05/31/16 05/31/16 05/31/16 03:15 09:20 09:20 Creatine Kinase 113 CK-MB (CK-2) 1.70 2.05 Troponin I 0.015 < 0.012 Impressions: Lung Scan-VQ NM 05/30/16 00:00 IMPRESSION: No ventilation-perfusion mismatches. Head CT 05/30/16 15:27 IMPRESSION: CHRONIC CHANGES OF ATROPHY AND MICROVASCULAR ISCHEMIA. NO ACUTE PROCESS. Chest X-Ray 06/02/16 00:00 IMPRESSION: Stable. Head MRI 06/06/16 11:58 IMPRESSION: ATROPHY AND CHRONIC MICRO-VASCULAR ISCHEMIC CHANGES. OTHERWISE NORMAL MRI OF THE BRAIN WITHOUT INTRAVENOUS GADOLINIUM CONTRAST. Transfer Plan - Disposition Transfer Plan: Transfer to [facility] for acute rehabilitation. Follow-up chest x-ray in 3 weeks. - Time Spent with Patient Time spent with patient: Greater than 30 Minutes Qualifiers PATEINT BEING DISCHARGED WITH ANY OF THE FOLLOWING DIAGNOSIS?: No
[2016-06-11 13:11] VITALS: BP 125/64
== END 2016-06-11 15:06 | DRG 56 ==
LOC: ER 15:02 → EH 17:47 → UNDOADMIN 17:51 → EH 17:51 → 3W 22:32 → 4N 06-05 14:33
PROVIDERS: ADMIT Family Medicine; ATTEND Family Medicine
DX: I69.398 Other sequelae of cerebral infarction (principal); R56.9 Unspecified convulsions; A41.9 Sepsis, unspecified organism; B37.1 Pulmonary candidiasis; J15.212 Pneumonia due to Methicillin resistant Staphylococcus aureus; G93.40 Encephalopathy, unspecified; I69.354 Hemiplegia and hemiparesis following cerebral infarction affecting left non-dominant side; N39.0 Urinary tract infection, site not specified; F05 Delirium due to known physiological condition; B96.20 Unspecified Escherichia coli [E. coli] as the cause of diseases classified elsewhere; K58.9 Irritable bowel syndrome, unspecified; D51.9 Vitamin B12 deficiency anemia, unspecified; I44.0 Atrioventricular block, first degree; M24.542 Contracture, left hand; I10 Essential (primary) hypertension; E78.00 Pure hypercholesterolemia, unspecified; E78.5 Hyperlipidemia, unspecified; F03.90 Unspecified dementia, unspecified severity, without behavioral disturbance, psychotic disturbance, mood disturbance, and anxiety; M54.9 Dorsalgia, unspecified; Z87.891 Personal history of nicotine dependence; Z79.82 Long term (current) use of aspirin; Z79.899 Other long term (current) drug therapy; Z88.8 Allergy status to other drugs, medicaments and biological substances; Z86.14 Personal history of Methicillin resistant Staphylococcus aureus infection
CPT/HCPCS: 36415; 70450; 70551; 71010; 78582; 80048; 80053; 80301; 81001; 82140; 82272; 82550; 82553; 83690; 83735; 84443; 84484; 85025; 85610; 87040; 87045; 87070; 87077; 87086; 87088; 87186; 87205; 89055; 93005; 93010; 94799; 95819; 99285; A9540; A9567; G0479; G8978-GP; G8979-GP; G8987-GO; G8988-GO; G8996-GN; G8997-GN; G8998-GN; J1650; J2543; J3490; J7030; J7620; Q9969

== ENCOUNTER 2016-06-27 17:45 | Inpatient (IN) | payer MEDICARE, OTHER ==
[2016-06-27] MEDS ORDERED: NORMAL SALINE 1000 ML 1,000 ML IV ONE (19:06)
--- NOTE | 2016-06-27 19:28 | ER Document Report ---
ED General - General Chief Complaint: Other Stated Complaint: TUBE PLACEMENT Cannot obtain history due to: Dementia Notes: Patient is an 85-year-old male who presents from a [place] [facility] for PEG tube placement. Patient apparently failed a swallow study 2 days ago and was noted to even be aspirating his oral secretions. He has been made nothing by mouth and was referred to the ED by his GI physician. Patient himself is demented and unable to provide any meaningful history. The nurse caring for the patient was contacted and notes that he has not had any acute change in his symptoms today he was referred due to concern for impending dehydration and malnutrition due to his nothing by mouth status and inability to safely tolerate oral intake. TRAVEL OUTSIDE OF THE [place] IN LAST 30 DAYS: No - Related Data Allergies/Adverse Reactions: temazepam [From Restoril] Adverse Reaction (Mild, Verified 04/15/16 15:30) Confusion Home Medications: Current Home Medications Acetaminophen [Acetaminophen Extra Strength] 1 gm PO Q8HP PRN 06/27/16 [History] Albuterol Sulfate [Ventolin 0.083% Neb 2.5 mg/3 mL Ampul] 2.5 mg NEB RTQ4HP PRN 06/27/16 [History] Aspirin [Aspirin EC] 81 mg PO DAILY 06/27/16 [History] Ferrous Sulfate [Iron] 325 mg PO DAILY 06/27/16 [History] Fish Oil/Dha/Epa [Fish Oil 1,200 mg Fish Oil] 1 cap PO DAILY 06/27/16 [History] Folic Acid/Multivit-Min/Lutein [Centrum Silver Chewable Tablet] 1 tab PO DAILY 06/27/16 [History] Guaifenesin [Mucinex] 600 mg PO Q12 06/27/16 [History] Levetiracetam [Keppra 500 mg Tablet] 500 mg PO Q12 06/27/16 [History] Menthol [Biofreeze] 1 applic TP Q6HP PRN 06/27/16 [History] Mesalamine [Pentasa 250 mg Capsule.sa] 500 mg PO TID 06/27/16 [History] Ondansetron HCl [Zofran 4 mg Tablet] 4 mg PO Q6HP PRN 06/27/16 [History] Simvastatin [Zocor 10 mg Tablet] 10 mg PO QHS 06/27/16 [History] Umeclidinium Brm/Vilanterol Tr [Anoro Ellipta 62.5-25 Mcg INH] 1 puff IH DAILY 06/27/16 [History] Past Medical History - General Information source: Transfer Record, Outside Facility Records - Social History Smoking Status: Former Smoker Frequency of alcohol use: None Drug Abuse: None Lives with: Spouse/Significant other Family History: Hypertension, Other - Father had CHF - Past Medical History Cardiac Medical History: Reports: Hx Hypercholesterolemia, Hx Hypertension Neurological Medical History: Reports: Hx Cerebrovascular Accident - 2011 left- sided weakness GI Medical History: Reports: Hx Irritable Bowel Past Surgical History: Reports: Hx Herniorrhaphy, Hx Inguinal Hernia, Hx Tonsillectomy - Immunizations Immunizations up to date: Yes Hx Diphtheria, Pertussis, Tetanus Vaccination: Yes Hx Pneumococcal Vaccination: 04/10/15 Review of Systems - Review of Systems Notes: Constitutional: Negative for fever. HENT: Negative for sore throat. Eyes: Negative for visual changes. Cardiovascular: Negative for chest pain. Respiratory: Negative for shortness of breath. Gastrointestinal: Negative for abdominal pain, vomiting or diarrhea. Genitourinary: Negative for dysuria. Musculoskeletal: Negative for back pain. Skin: Negative for rash. Neurological: Negative for headaches, weakness or numbness. 10 point ROS negative except as marked above and in HPI. Physical Exam - Vital signs Vitals: Temp Pulse Resp BP Pulse Ox 98.4 F 70 16 129/60 H 94 06/27/16 18:00 06/27/16 18:00 06/27/16 18:00 06/27/16 18:00 06/27/16 18:00 Interpretation: Normal Notes: PHYSICAL EXAMINATION: GENERAL: Well-appearing, well-nourished and in no acute distress. HEAD: Atraumatic, normocephalic. EYES: Pupils equal round and reactive to light, extraocular movements intact, sclera anicteric, conjunctiva are normal. ENT: nares patent, oropharynx clear without exudates. Moist mucous membranes. NECK: Normal range of motion, supple without lymphadenopathy LUNGS: Breath sounds clear to auscultation bilaterally and equal. No wheezes rales or rhonchi. HEART: Regular rate and rhythm without murmurs ABDOMEN: Soft, nontender, normoactive bowel sounds. No guarding, no rebound. No masses appreciated. EXTREMITIES: Normal range of motion, no pitting or edema. No cyanosis. NEUROLOGICAL: No focal neurological deficits. Moves all extremities spontaneously and on command. PSYCH: Normal mood, normal affect. SKIN: Warm, Dry, normal turgor, no rashes or lesions noted. Course - Re-evaluation Re-evalutation: 06/27/16 19:27 Patient arrives with request for PEG tube placement per GI () and eren reich. I spoke with the nursing care this patient who relates that he has been made nothing by mouth for the past 36 hours including medications and sips and swallows due to aspirating even his oral secretions. Patient himself is well-appearing, in no acute distress, vitals within normal limits. I discussed this case with the GI physician Dr. Noriega who states that he is willing to place a PEG tube. I contacted Dr. Kang who agreed to admission for PEG tube placement - Vital Signs Vital signs: Temp Pulse Resp BP Pulse Ox 97.8 F 72 14 133/74 H 96 06/27/16 23:48 06/27/16 23:48 06/27/16 23:48 06/27/16 23:48 06/27/16 23:48 - Laboratory Result Diagrams: 06/27/16 22:00 06/27/16 22:00 Discharge - Discharge Clinical Impression: Dysphasia, Dehydration Condition: Fair Disposition: ADMITTED INPATIENT Admitting Provider: Yadiel Kang Unit Admitted: Telemetry
[2016-06-27] MEDS ORDERED: IPRATROPIUM/ALBUTEROL 0.5-2.5 MG/3 ML AMPUL NEB PRN (19:37)
[2016-06-27] MEDS ORDERED: ONDANSETRON HCL INJ/PF 4 MG/2 ML SDV IV PRN (19:37)
[2016-06-27] MEDS ORDERED: ACETAMINOPHEN 650 MG SUPP.RECT PR PRN (19:37)
[2016-06-27] MEDS ORDERED: PHARMACY COMMUNICATION ORDER MC NR (19:45)
[2016-06-27] MEDS ORDERED: CEFAZOLIN 1 GM/D5W RTU 50 ML IV PRN (20:53)
--- NOTE | 2016-06-27 20:53 | PDOC CONSULTATION ---
Consultation Consult Date: 06/27/16 Attending physician:: GEETA FERGUSON Consult reason:: dysphagia, failed swallowing study. recent EGD done at [facility] with findings of gastric ulcer and some sort of colitis. ? needs PEG History of Present Illness Admission Date/PCP: 06/27/16 19:37 MARIA DEL ROSARIO DEE MD History of Present Illness: NAIDA OWENS JR is a 85 year old male He is a resident of [facility] he has had a recent hospitalization at [facility] apparently had upper GI bleeding had EGD done that showed a gastric ulcer also had colonoscopy that showed some colitis he apparently has not been eating, he had a swallowing study that was done and was noted to have aspiration A PEG tube was requested he has not had a follow up EGD to document the location of his ulcer or whether it has stabalized Unclear if consent can be obtained [facility] not able to provide either IV for hydration or NG tube patient has had a history of seizures in the past, unclear if he has had a documented CVA admitted for rehydration, had aspiration pneumonia and has been on antibiotics recently CXR in progress Past Medical History Cardiac Medical History: Reports: Hyperlipidema, Hypertension Hematology: Reports: Anemia Past Surgical History Past Surgical History: Reports: Herniorrhaphy, Tonsillectomy Social History Smoking Status: Former Smoker Frequency of Alcohol Use: None Hx Recreational Drug Use: No Drugs: None Hx Prescription Drug Abuse: No Family History Family History: Hypertension, Other - Father had CHF Parental Family History Reviewed: Yes Children Family History Reviewed: Unknown Sibling(s) Family History Reviewed.: Unknown Medication/Allergy Home Medications: Acetaminophen [Acetaminophen Extra Strength] 1 gm PO Q8HP PRN 06/27/16 Albuterol Sulfate [Ventolin 0.083% Neb 2.5 mg/3 mL Ampul] 2.5 mg NEB RTQ4HP PRN 06/27/16 Aspirin [Aspirin EC] 81 mg PO DAILY 06/27/16 Ferrous Sulfate [Iron] 325 mg PO DAILY 06/27/16 Fish Oil/Dha/Epa [Fish Oil 1,200 mg Fish Oil] 1 cap PO DAILY 06/27/16 Folic Acid/Multivit-Min/Lutein [Centrum Silver Chewable Tablet] 1 tab PO DAILY 06/27/16 Guaifenesin [Mucinex] 600 mg PO Q12 06/27/16 Levetiracetam [Keppra 500 mg Tablet] 500 mg PO Q12 06/27/16 Menthol [Biofreeze] 1 applic TP Q6HP PRN 06/27/16 Mesalamine [Pentasa 250 mg Capsule.sa] 500 mg PO TID 06/27/16 Ondansetron HCl [Zofran 4 mg Tablet] 4 mg PO Q6HP PRN 06/27/16 Simvastatin [Zocor 10 mg Tablet] 10 mg PO QHS 06/27/16 Umeclidinium Brm/Vilanterol Tr [Anoro Ellipta 62.5-25 Mcg INH] 1 puff IH DAILY 06/27/16 Allergies/Adverse Reactions: temazepam [From Restoril] Adverse Reaction (Mild, Verified 04/15/16 15:30) Confusion Review of Systems Constitutional: ABSENT: fever(s), headache(s), night sweats, weakness Eyes: PRESENT: visual disturbances Nose, Mouth, and Throat: ABSENT: mouth pain Cardiovascular: ABSENT: chest pain, orthropnea, palpitations Respiratory: PRESENT: dyspnea. ABSENT: hemoptysis Gastrointestinal: PRESENT: diarrhea, dysphagia. ABSENT: abdominal pain, hematemesis, hematochezia Genitourinary: ABSENT: dysuria, hematuria Musculoskeletal: ABSENT: joint swelling Integumentary: ABSENT: pruritus Neurological: PRESENT: lack of coordination, syncope. ABSENT: paresthesias, tremor(s), vertigo Psychiatric: ABSENT: homidical ideation, suicidal ideation Endocrine: ABSENT: polydipsia, polyphagia, polyuria Hematologic/Lymphatic: ABSENT: easy bruising Physical Exam Vital Signs: Temp Pulse Resp BP Pulse Ox 98.4 F 70 16 129/60 H 94 06/27/16 18:00 06/27/16 18:00 06/27/16 18:00 06/27/16 18:00 06/27/16 18:00 General appearance: PRESENT: no acute distress, hard of hearing Head exam: PRESENT: atraumatic, normocephalic Eye exam: PRESENT: EOMI, PERRLA. ABSENT: nystagmus, periorbital swelling, scleral icterus Mouth exam: PRESENT: dry mucosa. ABSENT: moist Neck exam: ABSENT: meningismus, tenderness, thyromegaly Respiratory exam: PRESENT: decreased breath sounds, rales, rhonchi, symmetrical. ABSENT: chest wall tenderness, clear to auscultation guido GI/Abdominal exam: PRESENT: normal bowel sounds, soft. ABSENT: distended, guarding, Bullock's sign, rebound Neurological exam: PRESENT: alert, awake, oriented to person, CN II-XII grossly intact Psychiatric exam: PRESENT: agitated Skin exam: PRESENT: normal color. ABSENT: mottled, pallor, urticaria, vesicles Results Impressions: Chest X-Ray 06/27/16 19:38 IMPRESSION: NO ACUTE RADIOGRAPHIC FINDING IN THE CHEST. Assessment & Plan - Diagnosis (1) Feeding difficulty Plan: possible PEG placement inability to take oral intake and failed recent swallow study consent will be an issue (2) Dehydration Plan: will need hydration check H/H and coagulation profile for anticipated possible PEG placement (3) Healthcare-associated pneumonia Plan: patient has previous pneumonia and had been on antibiotics patient had significant issues with chronic cough and maintenance of secretions PEG will help with nutrition but will pose and added risk for possible aspiration as this has already been documented may need antibiotics (4) Gastric ulcer Plan: will need follow up EGD since initial EGD not done by myself he will need PEG but may not be able to be placed if ulcer is an issue may need surgical J tube in that case (5) Colitis Plan: patient had previous colonoscopy done at [facility] that is suggestive of colitis etiology unknown at some point will need repeat colonoscopy given recent CVA, ? possible ischemia - Time Time Spent: 50 to 70 Minutes
[2016-06-27 22:06] LABS: ABSOLUTE BASOPHILS # (AUTO) 0.1 10^3/uL (0.0-0.2); ABSOLUTE EOSINOPHILS # (AUTO) 0.4 10^3/uL (0.0-0.6); ABSOLUTE LYMPHOCYTES (AUTO) 1.7 10^3/uL (0.5-4.7); ABSOLUTE MONOCYTES (AUTO) 0.7 10^3/uL (0.1-1.4); BASOPHILS % (AUTO) 0.7 % (0-2); EOSINOPHILS % (AUTO) 5.1 % (0-6); HEMATOCRIT 32.1 % (37.9-51.0); HEMOGLOBIN 10.8 g/dL (13.5-17.0); HGB HCT DIFFERENCE 0.3; LYMPHOCYTES % (AUTO) 21.3 % (13-45); MEAN CORPUSCULAR HEMOGLOBIN 32.5 pg (27.0-33.4); MEAN CORPUSCULAR HGB CONC 33.6 g/dL (32.0-36.0); MEAN CORPUSCULAR VOLUME 97 fl (80-97); MONOCYTES % (AUTO) 8.5 % (3-13); RED BLOOD COUNT 3.31 10^6/uL (4.35-5.55); RED CELL DISTRIBUTION WIDTH 15.1 % (11.5-14.0); SEGMENTED NEUTROPHILS % (AUTO) 64.4 % (42-78); WHITE BLOOD COUNT 7.8 10^3/uL (4.0-10.5)
[2016-06-27 22:11] LABS: PROTHROMBIN TIME 14.5 SEC (11.4-15.4)
[2016-06-27 22:12] LABS: PARTIAL THROMBOPLASTIN TIME 31.9 SEC (23.5-35.8)
[2016-06-27 22:22] LABS: ANION GAP 16 (5-19); BLOOD UREA NITROGEN 21 mg/dL (7-20); CALCIUM 9.2 mg/dL (8.4-10.2); CARBON DIOXIDE 21 mmol/L (22-30); CHLORIDE 108 mmol/L (98-107); CREATININE RESULT 0.93 mg/dL (0.52-1.25); GLUCOSE 75 mg/dL (75-110); MAGNESIUM 2.1 mg/dL (1.6-2.3); PHOSPHORUS 3.8 mg/dL (2.5-4.5); POTASSIUM 4.4 mmol/L (3.6-5.0); SODIUM 144.6 mmol/L (137-145)
[2016-06-27] MEDS ORDERED: LEVETIRACETAM 500 MG TABLET PO ONE (22:45)
[2016-06-27] MEDS ORDERED: MESALAMINE 250 MG CAPSULE.SA PO ONE (23:00)
[2016-06-28] MEDS: HEPARIN SOD (PORCINE) 5,000 UNIT/ML 1 ML SYRINGE SUBCUT SCH ×3 (00:11→18:00)
[2016-06-28] MEDS ORDERED: CEFAZOLIN SODIUM 1 GM in DEXTROSE 5%-WATER 50 ML IV PRN (05:00)
--- NOTE | 2016-06-28 05:22 | PDOC H&P ---
History of Present Illness Admission Date/PCP: 06/27/16 19:37 MARIA DEL ROSARIO DEE MD Patient complains of: Aspiration of food and cough History of Present Illness: NAIDA OWENS JR is a 85 year old male who is a long-term [facility] resident at [facility] with an extensive past medical history of paroxysmal atrial fibrillation, COPD with chronic bronchitis, seizure disorder, CVA in 2000 with left-sided weakness, remote alcohol dependence, colitis, hypertension, upper GI bleed and chronic and recurrent aspiration prompting studies at [facility] recommending PEG tube placement. At [facility] he is noted to have episodes of aspiration and referred to the hospital for admission and PEG tube placement. Past Medical History Cardiac Medical History: Reports: Atrial Fibrillation, Hyperlipidema, Hypertension Pulmonary Medical History: Reports: Bronchitis, Chronic Obstructive Pulmonary Disease (COPD) Neurological Medical History: Reports: Ischemic CVA GI Medical History: Reports: Peptic Ulcer Disease, Ulcerative Colitis Hematology: Reports: Anemia Past Surgical History Past Surgical History: Reports: Herniorrhaphy, Tonsillectomy Social History Information Source: [facility] Records Lives with: Spouse/Significant other Smoking Status: Former Smoker Frequency of Alcohol Use: None Hx Recreational Drug Use: No Drugs: None Hx Prescription Drug Abuse: No - Advance Directive Resuscitation Status: Full Code Family History Family History: Hypertension, Other - Father had CHF Parental Family History Reviewed: Yes Children Family History Reviewed: Yes Sibling(s) Family History Reviewed.: Yes Medication/Allergy Home Medications: Acetaminophen [Acetaminophen Extra Strength] 1 gm PO Q8HP PRN 06/27/16 Albuterol Sulfate [Ventolin 0.083% Neb 2.5 mg/3 mL Ampul] 2.5 mg NEB RTQ4HP PRN 06/27/16 Aspirin [Aspirin EC] 81 mg PO DAILY 06/27/16 Ferrous Sulfate [Iron] 325 mg PO DAILY 06/27/16 Fish Oil/Dha/Epa [Fish Oil 1,200 mg Fish Oil] 1 cap PO DAILY 06/27/16 Folic Acid/Multivit-Min/Lutein [Centrum Silver Chewable Tablet] 1 tab PO DAILY 06/27/16 Guaifenesin [Mucinex] 600 mg PO Q12 06/27/16 Levetiracetam [Keppra 500 mg Tablet] 500 mg PO Q12 06/27/16 Menthol [Biofreeze] 1 applic TP Q6HP PRN 06/27/16 Mesalamine [Pentasa 250 mg Capsule.sa] 500 mg PO TID 06/27/16 Ondansetron HCl [Zofran 4 mg Tablet] 4 mg PO Q6HP PRN 06/27/16 Simvastatin [Zocor 10 mg Tablet] 10 mg PO QHS 06/27/16 Umeclidinium Brm/Vilanterol Tr [Anoro Ellipta 62.5-25 Mcg INH] 1 puff IH DAILY 06/27/16 Allergies/Adverse Reactions: temazepam [From Restoril] Adverse Reaction (Mild, Verified 04/15/16 15:30) Confusion Review of Systems Constitutional: ABSENT: chills, fever(s), headache(s), weight gain, weight loss Eyes: ABSENT: visual disturbances Ears: ABSENT: hearing changes Cardiovascular: ABSENT: chest pain, dyspnea on exertion, edema, orthropnea, palpitations Respiratory: ABSENT: cough, hemoptysis Gastrointestinal: ABSENT: abdominal pain, constipation, diarrhea, hematemesis, hematochezia, nausea, vomiting Genitourinary: ABSENT: dysuria, hematuria Musculoskeletal: ABSENT: joint swelling Integumentary: ABSENT: rash, wounds Neurological: ABSENT: abnormal gait, abnormal speech, confusion, dizziness, focal weakness, syncope Psychiatric: ABSENT: anxiety, depression, homidical ideation, suicidal ideation Endocrine: ABSENT: cold intolerance, heat intolerance, polydipsia, polyuria Hematologic/Lymphatic: ABSENT: easy bleeding, easy bruising Physical Exam Vital Signs: Temp Pulse Resp BP Pulse Ox 97.8 F 76 14 133/74 H 96 06/27/16 23:48 06/28/16 02:00 06/27/16 23:48 06/27/16 23:48 06/27/16 23:48 General appearance: PRESENT: disheveled, mild distress, well-developed, well- nourished Head exam: PRESENT: atraumatic, normocephalic Eye exam: PRESENT: conjunctiva pink, EOMI, PERRLA. ABSENT: scleral icterus Ear exam: PRESENT: normal external ear exam Mouth exam: PRESENT: moist, tongue midline Neck exam: ABSENT: carotid bruit, JVD, lymphadenopathy, thyromegaly Respiratory exam: PRESENT: crackles, prolonged expiratory phas, rhonchi, symmetrical, tachypnea. ABSENT: rales, wheezes Cardiovascular exam: PRESENT: RRR. ABSENT: diastolic murmur, rubs, systolic murmur Pulses: PRESENT: normal dorsalis pedis pul Vascular exam: PRESENT: normal capillary refill GI/Abdominal exam: PRESENT: normal bowel sounds, soft. ABSENT: distended, guarding, mass, organolmegaly, rebound, tenderness Rectal exam: PRESENT: deferred Extremities exam: PRESENT: full ROM. ABSENT: calf tenderness, clubbing, pedal edema Neurological exam: PRESENT: alert, awake, oriented to person, oriented to place , oriented to situation, CN II-XII grossly intact. ABSENT: motor sensory deficit Psychiatric exam: PRESENT: agitated, anxious. ABSENT: homicidal ideation, suicidal ideation Skin exam: PRESENT: dry, intact, warm. ABSENT: cyanosis, rash Results Laboratory Results: 06/27/16 22:00 06/27/16 22:00 06/27/16 06/27/16 22:00 22:00 WBC 7.8 RBC 3.31 L Hgb 10.8 L Hct 32.1 L MCV 97 MCH 32.5 MCHC 33.6 RDW 15.1 H Plt Count 276 Seg Neutrophils % 64.4 Lymphocytes % 21.3 Monocytes % 8.5 Eosinophils % 5.1 Basophils % 0.7 Absolute Neutrophils 5.0 Absolute Lymphocytes 1.7 Absolute Monocytes 0.7 Absolute Eosinophils 0.4 Absolute Basophils 0.1 Sodium 144.6 Potassium 4.4 Chloride 108 H Carbon Dioxide 21 L Anion Gap 16 BUN 21 H Creatinine 0.93 Est GFR ( Amer) > 60 Est GFR (Non-Af Amer) > 60 Glucose 75 Calcium 9.2 Phosphorus 3.8 Magnesium 2.1 Impressions: Chest X-Ray 06/27/16 19:38 IMPRESSION: NO ACUTE RADIOGRAPHIC FINDING IN THE CHEST. Assessment & Plan - Diagnosis (1) Aspiration into airway Is this a current diagnosis for this admission?: YesPlan: Recent studies a [facility] indicate recurrent aspiration recommending PEG tube placement, patient is placed with NG tube and nothing by mouth, GI Dr. Stokes consulted (2) Acute exacerbation of chronic bronchitis Is this a current diagnosis for this admission?: YesPlan: Albuterol Atrovent with incentive spirometry and empiric antibiotics (3) Atrial fibrillation Is this a current diagnosis for this admission?: YesPlan: Rate controlled intolerant of anticoagulation given GI bleed (4) Peptic ulcer Is this a current diagnosis for this admission?: YesPlan: Nothing by mouth Proton pump inhibitor and GI consult for EGD
[2016-06-28] MEDS: MESALAMINE 250 MG CAPSULE.SA PO SCH ×2 (05:25→18:00)
[2016-06-28] MEDS ORDERED: LANSOPRAZOLE 30 MG TAB.RAP.DR NG SCH (06:00)
[2016-06-28 06:06] LABS: PROTHROMBIN TIME 14.7 SEC (11.4-15.4)
[2016-06-28] MEDS ORDERED: LIDOCAINE 2% INJ-PF (20 MG/ML) 10 ML AMPUL ONE (08:54)
[2016-06-28] MEDS ORDERED: LEVETIRACETAM 500 MG TABLET PO SCH (10:00)
[2016-06-28] MEDS ORDERED: NORMAL SALINE 1000 ML 1,000 ML IV PRN (11:08)
[2016-06-28] MEDS ORDERED: LEVETIRACETAM 500 MG/NACL-ISO 500 MG/100 ML RTUPB IV ONE (11:45)
--- NOTE | 2016-06-28 13:18 | PDOC PROGRESS REPORT ---
Subjective Progress Note for:: 06/28/16 Subjective:: Patient seen on morning rounds. He is resting in bed. He denies nausea, vomiting or abdominal pain. He states he is hungry and thirsty. He is presently NPO for EGD this am and PEG tube placement. He has been NPO since failing a swallow evaluation at [facility] 2 days ago. He denies any dyspnea he does have a congested cough. He denies any chest pain, back pains or myalgias. Physical Exam Vital Signs: Temp Pulse Resp BP Pulse Ox 98.5 F 82 18 131/60 H 96 06/28/16 08:13 06/28/16 12:51 06/28/16 12:51 06/28/16 08:13 06/28/16 12:51 Intake & Output 06/27/16 06/28/16 06/29/16 06:59 06:59 06:59 Intake Total 220 Balance 220 Weight 69 kg General appearance: PRESENT: no acute distress, thin, well-developed Head exam: PRESENT: atraumatic, normocephalic Eye exam: PRESENT: conjunctiva pink, EOMI, PERRLA. ABSENT: scleral icterus Ear exam: PRESENT: normal external ear exam Mouth exam: PRESENT: dry mucosa, tongue midline Neck exam: ABSENT: carotid bruit, JVD, lymphadenopathy, thyromegaly Respiratory exam: PRESENT: clear to auscultation guido. ABSENT: rales, rhonchi, wheezes Cardiovascular exam: PRESENT: RRR. ABSENT: diastolic murmur, rubs, systolic murmur Pulses: PRESENT: normal dorsalis pedis pul Vascular exam: PRESENT: normal capillary refill GI/Abdominal exam: PRESENT: normal bowel sounds, soft. ABSENT: distended, guarding, mass, organolmegaly, rebound, tenderness Rectal exam: PRESENT: deferred Extremities exam: PRESENT: full ROM. ABSENT: calf tenderness, clubbing, pedal edema Neurological exam: PRESENT: alert, awake, oriented to person, CN II-XII grossly intact. ABSENT: motor sensory deficit Psychiatric exam: PRESENT: anxious Skin exam: PRESENT: dry, normal color, warm Results Laboratory Results: 06/27/16 22:00 06/27/16 22:00 06/27/16 06/27/16 22:00 22:00 WBC 7.8 RBC 3.31 L Hgb 10.8 L Hct 32.1 L MCV 97 MCH 32.5 MCHC 33.6 RDW 15.1 H Plt Count 276 Seg Neutrophils % 64.4 Lymphocytes % 21.3 Monocytes % 8.5 Eosinophils % 5.1 Basophils % 0.7 Absolute Neutrophils 5.0 Absolute Lymphocytes 1.7 Absolute Monocytes 0.7 Absolute Eosinophils 0.4 Absolute Basophils 0.1 Sodium 144.6 Potassium 4.4 Chloride 108 H Carbon Dioxide 21 L Anion Gap 16 BUN 21 H Creatinine 0.93 Est GFR ( Amer) > 60 Est GFR (Non-Af Amer) > 60 Glucose 75 Calcium 9.2 Phosphorus 3.8 Magnesium 2.1 Impressions: Chest X-Ray 06/27/16 19:38 IMPRESSION: NO ACUTE RADIOGRAPHIC FINDING IN THE CHEST. Assessment & Plan - Diagnosis (1) Aspiration into airway Is this a current diagnosis for this admission?: YesPlan: Patient is on broad spectrum antibiotics with blood and sputum cultures pending. (2) Atrial fibrillation Qualifiers: Atrial fibrillation type: paroxysmal Qualified Code(s): I48.0 - Paroxysmal atrial fibrillation Is this a current diagnosis for this admission?: YesPlan: Patient intolerant of anticoagulation due to PUD. Presently in normal sinus rhythm (3) Dysphasia Is this a current diagnosis for this admission?: YesPlan: Patient had a swallow evaluation 2 days ago which he failed and has been NPO since (4) Dehydration Is this a current diagnosis for this admission?: YesPlan: Mild elevation of BUN. Will rehydrate gently (5) Peptic ulcer Is this a current diagnosis for this admission?: YesPlan: Continue PPI therapy (6) Seizure disorder Is this a current diagnosis for this admission?: YesPlan: Continue IV Keppra (7) Colitis Is this a current diagnosis for this admission?: YesPlan: Continue Pentassa (8) Protein-calorie malnutrition, mild Is this a current diagnosis for this admission?: YesPlan: Patient with dysphagia with failed swallow. He and daughter agree to proceed with PEG tube placement for enteral feedings - Inpatient Certification Based on my medical assessment, after consideration of the patient's comorbidities, presenting symptoms, or acuity I expect that the services needed warrant INPATIENT care.: Yes I certify that my determination is in accordance with my understanding of Medicare's requirements for reasonable and necessary INPATIENT services [42 CFR 412.3e].: Yes Medical Necessity: Need For IV Fluids, Need for IV Antibiotics, Risk of Complication if Not Cared For in Hospital
[2016-06-28] MEDS ORDERED: PROPOFOL INJ 200 MG/20 ML VIAL IV ONE ×2 (13:27→14:29)
[2016-06-28] MEDS ORDERED: PANTOPRAZOLE SODIUM 40 MG VIAL IV ONE (13:30)
[2016-06-28] MEDS ORDERED: ALBUTEROL SULFATE 0.083% NEB 2.5 MG/3 ML AMPUL NEB ONE (14:08)
[2016-06-28] MEDS: PIPERACILLIN SODIUM/TAZOBACTAM 3.375 GM in NORMAL SALINE 100 ML IV SCH ×3 (14:45→18:14)
--- NOTE | 2016-06-28 15:26 | Operative Report ---
Operative Report DATE OF SURGERY: 06/28/16 Operative Report: The risks benefits and alternatives of the procedure explained to the patient in detail and informed consent is obtained that GIF Olympus video scope was inserted into the patient's mouth and hypopharynx the esophagus is identified intubated and insufflated the scope was then advanced through the esophagus stomach and duodenum retroflexion maneuver is done the esophagus stomach and first and second portions of the duodenum examined Following the confirmation of a suitable percutaneous endoscopic gastrostomy site the area is cleaned with Betadine solution. A sterile drape was placed over the area. 2% lidocaine is used to inject the area. A trocar was then used to puncture the anterior abdominal wall. This is visualized on endoscopy within the stomach cavity. The trocar is then snared. The metal portion was then removed. The guidewire was then placed and snared and then brought to the exterior. The PEG tube was then attached and then using traction, countertraction method the tube is pulled to its final rest and positioned with bumper noted at approximately 2 cm repeat upper endoscopy is done to document placement the site is dressed and patient sent to recovery in good condition. PREOPERATIVE DIAGNOSIS: Dysphagia and difficulty feeding POSTOPERATIVE DIAGNOSIS: Status post 20 Lao percutaneous gastrostomy tube placement. Large hiatal hernia OPERATION: EGD with PEG placement SURGEON: GEETA FERGUSON ANESTHESIA: LMAC TISSUE REMOVED OR ALTERED: None. COMPLICATIONS: None. ESTIMATED BLOOD LOSS: none. INTRAOPERATIVE FINDINGS: As noted above PROCEDURE: Patient tolerated the procedure well. No immediate postprocedure complications are noted. Patient was sent back to the room in good condition. [facility] evening once he wakes up. Should not be using the PEG tube for the next 6-8 hours. Then he should be able to use it for both medications as well as tube feeds. Dressing changes should be done daily The area should be cleansed with hydrogen peroxide as well as Betadine solution. The case was discussed with Dr. Grullon.
[2016-06-28] MEDS ORDERED: DIPHENHYDRAMINE HCL 50 MG/ML VIAL IV PRN (15:36)
[2016-06-28] MEDS ORDERED: PROMETHAZINE HCL INJ 25 MG/1 ML VIAL IV PRN (15:36)
[2016-06-29] MEDS: HEPARIN SOD (PORCINE) 5,000 UNIT/ML 1 ML SYRINGE SUBCUT SCH ×3 (00:17→15:09)
[2016-06-29] MEDS: PANTOPRAZOLE SODIUM 40 MG VIAL IV SCH ×2 (00:18→11:51)
[2016-06-29] MEDS: MESALAMINE 250 MG CAPSULE.SA PO SCH ×3 (00:19→15:09)
[2016-06-29] MEDS: LEVETIRACETAM 500 MG/NACL-ISO 500 MG/100 ML RTUPB IV SCH ×2 (00:19→11:50)
[2016-06-29] MEDS: PIPERACILLIN SODIUM/TAZOBACTAM 3.375 GM in NORMAL SALINE 100 ML IV SCH ×3 (00:20→15:08)
[2016-06-29 07:00] LABS: HEMATOCRIT 30.1 % (37.9-51.0); HEMOGLOBIN 9.9 g/dL (13.5-17.0); HGB HCT DIFFERENCE -0.4; MEAN CORPUSCULAR HEMOGLOBIN 31.7 pg (27.0-33.4); MEAN CORPUSCULAR HGB CONC 32.8 g/dL (32.0-36.0); MEAN CORPUSCULAR VOLUME 97 fl (80-97); RED BLOOD COUNT 3.11 10^6/uL (4.35-5.55); RED CELL DISTRIBUTION WIDTH 15.1 % (11.5-14.0); WHITE BLOOD COUNT 12.1 10^3/uL (4.0-10.5)
[2016-06-29 07:17] LABS: ANION GAP 14 (5-19); BLOOD UREA NITROGEN 23 mg/dL (7-20); CALCIUM 8.8 mg/dL (8.4-10.2); CARBON DIOXIDE 21 mmol/L (22-30); CHLORIDE 109 mmol/L (98-107); CREATININE RESULT 1.09 mg/dL (0.52-1.25); GLUCOSE 80 mg/dL (75-110); POTASSIUM 4.2 mmol/L (3.6-5.0); SODIUM 144.3 mmol/L (137-145)
--- NOTE | 2016-06-29 08:05 | PDOC PROGRESS REPORT ---
Subjective Progress Note for:: 06/29/16 Subjective:: patient has PEG placed yesterday and tolerated the procedure well he is still talking about having something to eat and drink. advised him that his swallowing may return at some point but at this point would be clinton to risk aspiration he does have a hiatal hernia and so so reflux and aspiration needs to be avoided PEG site otherwise intact, needs dressing changes bumper is adjusted and can follow up as outpatient Physical Exam Vital Signs: Temp Pulse Resp BP Pulse Ox 98.0 F 65 17 122/62 95 06/29/16 04:35 06/29/16 04:35 06/29/16 04:35 06/29/16 04:35 06/29/16 04:35 Intake & Output 06/28/16 06/29/16 06/30/16 06:59 06:59 06:59 Intake Total 220 1023 Output Total 0 Balance 220 1023 Weight 69 kg 70.2 kg General appearance: PRESENT: no acute distress Head exam: PRESENT: atraumatic, normocephalic Eye exam: PRESENT: EOMI, PERRLA. ABSENT: nystagmus, periorbital swelling, scleral icterus Throat exam: ABSENT: tonsillar exudate Neck exam: ABSENT: meningismus, tenderness, thyromegaly Respiratory exam: ABSENT: chest wall tenderness, tachypnea Cardiovascular exam: PRESENT: RRR, +S1, +S2 GI/Abdominal exam: ABSENT: Bullock's sign, rebound, rigid, tenderness Neurological exam: PRESENT: awake, oriented to time, oriented to situation, CN II-XII grossly intact Psychiatric exam: PRESENT: appropriate affect Skin exam: PRESENT: normal color. ABSENT: mottled, pallor, petechiae, urticaria , vesicles Results Laboratory Results: 06/29/16 06:21 06/29/16 06:21 06/29/16 06/29/16 06:21 06:21 WBC 12.1 H RBC 3.11 L Hgb 9.9 L Hct 30.1 L MCV 97 MCH 31.7 MCHC 32.8 RDW 15.1 H Plt Count 253 Sodium 144.3 Potassium 4.2 Chloride 109 H Carbon Dioxide 21 L Anion Gap 14 BUN 23 H Creatinine 1.09 Est GFR ( Amer) > 60 Est GFR (Non-Af Amer) > 60 Glucose 80 Calcium 8.8 Impressions: Chest X-Ray 06/28/16 00:00 IMPRESSION: No acute findings. No significant change prior study. Assessment & Plan - Diagnosis (1) Feeding difficulty Plan: PEG tube placed and OK to use for medications and oral supplementation at this point would observe strict aspiration precautions follow up as outpatient no ulcer noted large hiatal hernia PPI as needed (2) Dehydration Is this a current diagnosis for this admission?: Yes (5) Colitis Is this a current diagnosis for this admission?: Yes
[2016-06-29] MEDS ORDERED: (PENDING PHARMACY ID) (Menthol [Biofreeze] 1 APPLIC) TP PRN (15:09)
[2016-06-29] MEDS ORDERED: ALBUTEROL SULFATE 0.083% NEB 2.5 MG/3 ML AMPUL NEB PRN (15:09)
--- NOTE | 2016-06-29 15:12 | PDOC TRANSFER SUMMARY ---
General - Admit/Disc Date/PCP Admission Date/Primary Care Provider: 06/27/16 19:37 MARIA DEL ROSARIO DEE MD Discharge Date: 06/29/16 - Discharge Diagnosis (1) Aspiration into airway Is this a current diagnosis for this admission?: YesSummary: Patient with no signs of pneumonia at this time. Continue NPO status until cleared by speech (2) Atrial fibrillation Is this a current diagnosis for this admission?: YesSummary: Paroxymal presently in NSR (3) Dysphasia Is this a current diagnosis for this admission?: YesSummary: Continue speech therapy (4) Dehydration Is this a current diagnosis for this admission?: YesSummary: Resolved with IV hydration (5) Peptic ulcer Is this a current diagnosis for this admission?: YesSummary: continue PPI (6) Seizure disorder Is this a current diagnosis for this admission?: YesSummary: Continue Keppra (7) Colitis Is this a current diagnosis for this admission?: YesSummary: Pentassa follow with GI (8) Protein-calorie malnutrition, mild Is this a current diagnosis for this admission?: YesSummary: Enteral feedings Vital 1.5 at goal of 65 cc/hr with 40 cc water flushes - Additional Information Resuscitation Status: Full Code Home Medications: Albuterol Sulfate [Ventolin 0.083% Neb 2.5 mg/3 mL Ampul] 2.5 mg NEB RTQ4HP PRN 06/27/16 Menthol [Biofreeze] 1 applic TP Q6HP PRN 06/27/16 Umeclidinium Brm/Vilanterol Tr [Anoro Ellipta 62.5-25 Mcg INH] 1 puff IH DAILY 06/27/16 Acetaminophen [Acetaminophen Extra Strength] 1 gm PEG Q8HP PRN #0 06/29/16 Acetaminophen [Tylenol 650 mg Supp] 650 mg [place] Q4HP PRN supp.rect 06/29/16 Aspirin [Aspirin EC] 81 mg PEG DAILY #0 06/29/16 Ferrous Sulfate [Ferrous Sulfate Liquid 300 Mg/5 Ml Udcup] 300 mg PEG DAILY # 240 udc 06/29/16 Ipratropium/Albuterol Sulfate [Duoneb 3 ml Ampul] 3 ml NEB RTQ6HP PRN #0 vial.neb 06/29/16 Levetiracetam [Keppra 500 mg Tablet] 500 mg PEG Q12 #0 06/29/16 Mesalamine [Pentasa 250 mg Capsule.sa] 500 mg PEG TID #0 06/29/16 Simvastatin [Zocor 10 mg Tablet] 10 mg PEG QHS #0 06/29/16 History of Present Illness Admission Date/PCP: 06/27/16 19:37 MARIA DEL ROSARIO DEE MD Patient complains of: Failed swallow possible aspiration History of Present Illness: NAIDA OWENS JR is a 85 year old male who is a long-term halfway resident at [facility] with an extensive past medical history of paroxysmal atrial fibrillation, COPD with chronic bronchitis, seizure disorder, 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 At halfway he is noted to have episodes of aspiration and referred to the hospital for admission and PEG tube placement. Hospital Course Hospital Course: Patient was admitted to the hospitalist service. He was given IV hydration and empiric broad spectrum antibiotics for possible aspiration pneumonitis. Dr Monreal was consulted for PEG tube placement. He was taken to the OR the following day for PEG tube placement. He had speech therapy consult that agreed with npo status and need for follow up work with speech therapy for swallowing training. He had dietary consult for enteral feedings. Met with daughter who understands the situation. Reinforced numerous times to Mr Owens that he can't drink anything at the present time. He can use oral moistened swabs to moisten his mouth. Physical Exam Vital Signs: Temp Pulse Resp BP Pulse Ox 98.1 F 59 L 16 116/50 L 94 06/29/16 12:31 06/29/16 12:31 06/29/16 12:31 06/29/16 12:31 06/29/16 12:31 Intake & Output 06/28/16 06/29/16 06/30/16 06:59 06:59 06:59 Intake Total 220 1023 Output Total 0 Balance 220 1023 Weight 69 kg 70.2 kg General appearance: PRESENT: no acute distress, thin, well-developed, well- nourished Head exam: PRESENT: atraumatic, normocephalic Eye exam: PRESENT: conjunctiva pink, EOMI, PERRLA. ABSENT: scleral icterus Ear exam: PRESENT: normal external ear exam Mouth exam: PRESENT: moist, tongue midline Neck exam: PRESENT: carotid bruit Respiratory exam: PRESENT: clear to auscultation guido. ABSENT: rales, rhonchi, wheezes Cardiovascular exam: PRESENT: bradycardia, irregular rhythm Pulses: PRESENT: normal carotid pulses, normal radial pulses Vascular exam: PRESENT: normal capillary refill GI/Abdominal exam: PRESENT: normal bowel sounds, other - PEG patent Rectal exam: PRESENT: deferred Extremities exam: PRESENT: full ROM. ABSENT: calf tenderness, clubbing, pedal edema Musculoskeletal exam: PRESENT: full ROM, normal inspection Neurological exam: PRESENT: alert, awake, oriented to person, oriented to place , oriented to time, oriented to situation, CN II-XII grossly intact. ABSENT: motor sensory deficit Psychiatric exam: PRESENT: anxious Skin exam: PRESENT: dry, intact, warm. ABSENT: cyanosis, rash Results Laboratory Results: 06/29/16 06:21 06/29/16 06:21 06/29/16 06/29/16 06:21 06:21 WBC 12.1 H RBC 3.11 L Hgb 9.9 L Hct 30.1 L MCV 97 MCH 31.7 MCHC 32.8 RDW 15.1 H Plt Count 253 Sodium 144.3 Potassium 4.2 Chloride 109 H Carbon Dioxide 21 L Anion Gap 14 BUN 23 H Creatinine 1.09 Est GFR ( Amer) > 60 Est GFR (Non-Af Amer) > 60 Glucose 80 Calcium 8.8 Impressions: Chest X-Ray 06/28/16 00:00 IMPRESSION: No acute findings. No significant change prior study. Transfer Plan - Disposition Transfer Plan: Transfer back to [facility] - Time Spent with Patient Time spent with patient: Less than 30 Minutes
[2016-06-29 19:24] VITALS: BP 124/48
[2016-06-30] MEDS ORDERED: (PENDING PHARMACY ID) (Umeclidinium Brm/Vilanterol Tr [Anoro Ellipta 62.5-25 Mcg Inh] 1 PU IH SCH (10:00)
== END 2016-06-29 17:30 | DRG 641 ==
LOC: ER 17:45 → EH 19:37 → 4N 23:28
PROVIDERS: ADMIT Internal Medicine; ATTEND Internal Medicine
PROC: 3E0G76Z Introduction of Nutritional Substance into Upper GI, Via Natural or Artificial Opening (ICD-10-PCS; 2016-06-28)
PROC: 3E0F73Z Introduction of Anti-inflammatory into Respiratory Tract, Via Natural or Artificial Opening (ICD-10-PCS; 2016-06-28)
PROC: 0DH63UZ Insertion of Feeding Device into Stomach, Percutaneous Approach (ICD-10-PCS; principal; 2016-06-28 14:00)
DX: E44.1 Mild protein-calorie malnutrition (principal); I69.954 Hemiplegia and hemiparesis following unspecified cerebrovascular disease affecting left non-dominant side; I48.0 Paroxysmal atrial fibrillation; R13.10 Dysphagia, unspecified; E86.0 Dehydration; K27.9 Peptic ulcer, site unspecified, unspecified as acute or chronic, without hemorrhage or perforation; G40.909 Epilepsy, unspecified, not intractable, without status epilepticus; K52.9 Noninfective gastroenteritis and colitis, unspecified; J44.9 Chronic obstructive pulmonary disease, unspecified; I10 Essential (primary) hypertension; F10.20 Alcohol dependence, uncomplicated; E78.5 Hyperlipidemia, unspecified; K44.9 Diaphragmatic hernia without obstruction or gangrene; E78.00 Pure hypercholesterolemia, unspecified; D64.9 Anemia, unspecified; Z68.22 Body mass index [BMI] 22.0-22.9, adult; Z79.899 Other long term (current) drug therapy; Z87.891 Personal history of nicotine dependence; Z79.82 Long term (current) use of aspirin; Z88.8 Allergy status to other drugs, medicaments and biological substances; Z82.49 Family history of ischemic heart disease and other diseases of the circulatory system
CPT/HCPCS: 36415; 43246; 71010; 740; 80048; 83735; 84100; 85025; 85027; 85610; 85730; 94640; 99284; J0690; J1644; J1953; J2405; J2543; J2704; J3490; J7030; S0164

== ENCOUNTER 2016-09-19 08:35 | Day surgery (SDC) | payer MEDICARE, OTHER ==
[~2016-09-19 08:35] MED LIST: DIPHENHYDRAMINE HCL 50 MG/ML VIAL ONE; EPINEPHRINE INJ 1 MG/10 ML DISP.SYRIN ONE; FLUMAZENIL INJ 0.5 MG/5 ML VIAL IV ONE; GLUCAGON,HUMAN RECOMB 1 MG INJ ONE; NALOXONE HCL INJ/PF 0.4 MG/1 ML SDV ONE; ONDANSETRON HCL INJ/PF 4 MG/2 ML SDV ONE
[2016-09-19] MEDS: MIDAZOLAM 2 MG/2 ML INJ ONE ×2 (09:49→09:53)
[2016-09-19] MEDS: FENTANYL CITRATE INJ/PF 100 MCG/2 ML AMPUL ONE ×2 (09:51→09:56)
--- NOTE | 2016-09-19 10:17 | Operative Report ---
Operative Report DATE OF SURGERY: 09/19/16 Operative Report: The risks benefits and alternatives of the procedure explained to the patient in detail and informed consent is obtained that GIF Olympus video scope was inserted into the patient's mouth and hypopharynx the esophagus is identified intubated and insufflated the scope was then advanced through the esophagus stomach and duodenum retroflexion maneuver is done the esophagus stomach and first and second portions of the duodenum examined PREOPERATIVE DIAGNOSIS: Removal of PEG tube. Follow-up gastric ulcer POSTOPERATIVE DIAGNOSIS: Removal of PEG tube. Gastric ulcer healed. Gastritis status post biopsy rule out Helicobacter pylori OPERATION: EGD with foreign body removal. EGD with biopsy SURGEON: GEETA FERGUSON ANESTHESIA: Moderate Sedation - 3 mg of Versed, 25 g of fentanyl. Conscious sedation monitoring time 30 minutes. TISSUE REMOVED OR ALTERED: Gastric mucosal specimen obtained rule out Helicobacter pylori COMPLICATIONS: None. ESTIMATED BLOOD LOSS: none. INTRAOPERATIVE FINDINGS: Previously placed PEG tube had migrated into the subcutaneous tissue. The bumper was no longer located within the stomach cavity. Patient had not been using the PEG tube for several months and had been actually taking oral intake. The PEG tube was removed. Gastritis was noted biopsies obtained PROCEDURE: Patient tolerated procedure well. No immediate postprocedure complications are noted. Patient is discharged in good condition. Discharge date 09/19/2016. Discharge diet: Regular. Discharge activity: Regular. Follow-up as needed We'll await on biopsies Patient is instructed to go to the emergency room I'll call the office should there be any further problems or questions.
[2016-09-19 11:40] VITALS: BP 130/70
== END 2016-09-19 11:15 | disposition home or self-care (01) ==
LOC: END 08:35
PROVIDERS: ATTEND Internal Medicine Gastroenterology
PROC: 0DB68ZX Excision of Stomach, Via Natural or Artificial Opening Endoscopic, Diagnostic (ICD-10-PCS; principal; 2016-09-19 09:00)
PROC: 0DC68ZZ Extirpation of Matter from Stomach, Via Natural or Artificial Opening Endoscopic (ICD-10-PCS; 2016-09-19 09:00)
DX: K94.23 Gastrostomy malfunction (principal); K29.50 Unspecified chronic gastritis without bleeding; Z09 Encounter for follow-up examination after completed treatment for conditions other than malignant neoplasm; Z87.11 Personal history of peptic ulcer disease; Z88.8 Allergy status to other drugs, medicaments and biological substances
CPT/HCPCS: 43239; 43247; 88342 ×2; 88305 ×2; J2250; J3010; J0171; J1200; J1610; J2310; J2405; J3490

== ENCOUNTER → 2017-01-28 | Outpatient (CLI) | payer MEDICARE, OTHER ==
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
== END ==
LOC: OD 15:09
PROVIDERS: ATTEND Internal Medicine
DX: J20.8 Acute bronchitis due to other specified organisms (principal)
CPT/HCPCS: 71020

== ENCOUNTER 2018-02-26 11:01 | Emergency (ER) | payer MEDICARE ==
[2018-02-26] MEDS ORDERED: IPRATROPIUM/ALBUTEROL 0.5-2.5 MG/3 ML AMPUL NEB ONE (11:30)
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
[2018-02-26] MEDS ORDERED: AZITHROMYCIN 250 MG TABLET PO ONE (11:40)
[2018-02-26 13:30] VITALS: BP 124/65
== END 2018-02-26 13:55 | disposition home or self-care (01) ==
LOC: ER 11:01
DX: T73.0XXA Starvation, initial encounter (principal); X37.0XXA Hurricane, initial encounter; J44.9 Chronic obstructive pulmonary disease, unspecified; Z87.891 Personal history of nicotine dependence
CPT/HCPCS: 94640; 99284; A9270 ×2; J7620

== ENCOUNTER 2018-04-27 18:25 | Emergency (ER) | payer MEDICARE, OTHER ==
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
[2018-04-28] MEDS ORDERED: ALBUTEROL SULFATE 0.083% NEB 2.5 MG/3 ML AMPUL NEB PRN (04:43)
[2018-04-28] MEDS ORDERED: LEVETIRACETAM INJ/PF 500 MG/5 ML SDV IV SCH (05:15)
[2018-04-28] MEDS: OMEGA-3 ACID ETHYL ESTERS 1 GM CAPSULE PO SCH (09:13)
[2018-04-28] MEDS: FERROUS SULFATE 325 MG TABLET PO SCH (09:13)
[2018-04-28] MEDS: ASPIRIN 81 MG TABLET, ENT COATED PO SCH (09:13)
[2018-04-28] MEDS: MULTIVITAMIN TABLET PO SCH (09:13)
--- NOTE | 2018-04-28 12:19 | ER Document Report ---
Doctor's Note Notes: 04/28/18 12:18 Rounds: Chart reviewed. Introduced myself to patient. Very pleasant individual. Long-term eldercare placement is being sought. Vital signs of all been normal. No lab studies were ordered because patient had no medical complaint. Patient appears to be medically stable for transfer or discharge. Zainab Manley MD
[2018-04-28] MEDS ORDERED: SIMVASTATIN 10 MG TABLET PO SCH (22:00)
[2018-04-29] MEDS: FERROUS SULFATE 325 MG TABLET PO SCH (09:25)
[2018-04-29] MEDS: OMEGA-3 ACID ETHYL ESTERS 1 GM CAPSULE PO SCH (09:25)
[2018-04-29] MEDS: MULTIVITAMIN TABLET PO SCH (09:25)
[2018-04-29] MEDS: ASPIRIN 81 MG TABLET, ENT COATED PO SCH (09:25)
--- NOTE | 2018-04-29 09:47 | ER Document Report ---
Doctor's Note Notes: 04/29/18 09:46 Social rounds: Chart reviewed and patient interviewed. Vital signs are normal. Patient was scheduled to be discharged to a care home facility yesterday , but there apparently was some transport pending up. Hopefully he is going to be transferred today. Sage Manley MD
[2018-04-29 12:40] VITALS: BP 124/46
== END 2018-04-29 12:45 ==
LOC: ER 18:25
DX: T74.01XA Adult neglect or abandonment, confirmed, initial encounter (principal); Y07.499 Other family member, perpetrator of maltreatment and neglect; Z75.1 Person awaiting admission to adequate facility elsewhere; I10 Essential (primary) hypertension; J44.9 Chronic obstructive pulmonary disease, unspecified; Z87.891 Personal history of nicotine dependence
CPT/HCPCS: 94640; 99285; A9270 ×4